=== PATIENT | female | born 1940 | race Caucasian/White ===

== ENCOUNTER 2017-09-02 00:41 | Day surgery (SDC) | payer MEDICARE, OTHER ==
[~2017-09-02 00:41] MED LIST: ALLO100; ALLO100 PO; ALLO300 PO; ALPR.5; ALPR.5 PO; AMLO5; AMLO5 PO; AMOX500 PO; ASPI81CH PO; ASPI81EC; Allopurinol100 MG; Aluminum H320 MG/5 M PO; Ativan0.5 MG; BENADRYL25 MG PO; BENAML20/5; BICARB; BIOTIN2500 MCG PO; BIOTIN5 MG; BIOTIN5 MG PO; BISA5EC; BRINTELLIX PO; BRINTELLIX10 MG PO; BUME1; BUME2; BUME2 PO; BUPR75 PO; BUTASPCAF; BUTASPCAFT; Bactrim Ds Tab1 EACH PO; Benicar5 MG PO; Butalbital-Asa1 EAC1 PO; CALC.25 PO; CARB25; CARB25 PO; CEPH250A PO; CEPH500 PO; CIPR250 PO; CLON.1 PO; CLON.5; CLON.5 PO; CLON1; COLC.6 PO; CONEST.9; CYAN500 PO; CYCL10 PO; Calcitriol0.25 MCG; Carbidopa-Levo1 EAC1; Carbidopa-Levo1 EAC1 PO; DIAZ2 PO; DIPH50 PO; DOCU100 PO; DONE10; DONE10 PO; DONE5 PO; DOXE0.5 PO; DRON2.5; DULO30 PO; DULO60 PO; ESCI10; ESCI20 PO; FENT25TP; FIORICET 50-301 EACH; FOLI1 PO; Ferus150 MG PO; Flonase 0.05% N16 GM; GABA100 PO; GABA300; GEMF600; HYDACE5; HYDMOR2 PO; HYDR1TAB94 PO; ISOMON20 PO; Ipratropium Bro30 ML; LEVCAR2510; LEVCAR2510 PO; LEVFLO250 PO; LEVSOD150 PO; LEVSOD50; LEVSOD50 PO; LISI5 PO; LOPE2C PO; LORA.5; LORA.5 PO; LORA1 PO; MAG 64; MAGCHL64ER PO; MAGNESIUM PO; MAGNESIUM400 MG PO; METH40; METO2.5 PO; METO25ER PO; METO5 PO; METO50; METO50 PO; METOPROLOL PO; METPRE4DP PO; Magnesium500 M1; Micro-K10 MEQ PO; Mirapex0.25 MG; Mupirocin22 GM TOP; OLME20; OLME20 PO; OMEP20ER; OMEP20ER PO; ONDA4ODT MM; OXYACE5T; OXYACE5T PO; OXYC10TA19 PO; OXYC1TAB11 PO; OXYC5; OXYC5 PO; PERIDEX15 ML MM; POTA10T PO; POTA20LUD PO; POTCHL20ER PO; PRAM.125 PO; PRAM.5; PRAM.5 PO; PRAMIPEXOLE PO; PRED1SU BOTHEYES; PREG100; PREG100 PO; PREG150 PO; PREG25 PO; PREG50 PO; PREG75; PROC25S PR; PROM25; PROM25 PO; Pepcid40 MG PO; Percocet 5-3251 EACH PO; Phenergan25 M1 PO; Prilosec Otc20 MG PO; Prinivil10 MG PO; RABE20; RANI150 PO; ROPI.25 PO; ROPI1 PO; RXCYCL10 PO; RXHYDMOR2 PO; Restoril7.5 MG PO; SODBIC650; SODBIC650 PO; SPIR25 PO; SULTRIDS PO; TEMA15 PO; TERB250 PO; TRAZ50 PO; Transderm-Scop1 EACH TD; UNK ANTIDEPRESSANT; UREA 40% NAIL1 EACH TOP; VENL75; VENL75ER; VIIBRYD10 MG PO; VITAMIN B12-FO1 EACH PO; ZOLP10 PO; ZOLP5; Zofran Odt4 MG PO; Zofran Odt8 MG SL; [UNRECOGNIZED DRUG - OTHER] PO
[2017-12-25] MEDS ORDERED: MAGCHL64ER PO (11:34)
[2017-12-25] MEDS ORDERED: PREG75 PO (11:37)
[2017-12-25] MEDS ORDERED: OMEPRAZOLE MAGN20 MG PO (11:38)
[2017-12-25] MEDS ORDERED: METO25ER PO (11:38)
[2017-12-25] MEDS ORDERED: Meribin5 MG (11:38)
[2017-12-25] MEDS ORDERED: AMLO5 PO (11:38)
[2017-12-25] MEDS ORDERED: LISI5 PO (11:39)
[2017-12-25] MEDS ORDERED: GABA100 PO (11:39)
[2017-12-25] MEDS ORDERED: SODBIC650 PO (11:39)
[2017-12-25] MEDS ORDERED: LEVSOD50 PO (11:40)
[2017-12-25] MEDS ORDERED: ALLO100 PO (11:40)
[2017-12-25] MEDS ORDERED: PRAM.125 PO (11:40)
[2017-12-25] MEDS ORDERED: CALC.25 PO (11:41)
[2017-12-25] MEDS ORDERED: DONE10 PO (11:41)
[2017-12-25] MEDS ORDERED: Primalev 5-3001 EACH (11:41)
== END 2017-09-02 23:18 | disposition home or self-care (01) ==
LOC: ATC 00:41
DX: Z45.2 Encounter for adjustment and management of vascular access device (principal); R53.1 Weakness; R11.2 Nausea with vomiting, unspecified

== ENCOUNTER 2017-09-04 14:21 | Emergency (ER) | payer MEDICARE, OTHER ==
[~2017-09-04] VITALS: Ht 147.3 cm; Wt 49.9 kg
[2017-09-04] MEDS ORDERED: BUME2 PO ×2 (14:41→15:53)
[2017-09-04] MEDS ORDERED: CARBIDOPA/LEVODOPA PO (14:42)
[2017-09-04] MEDS ORDERED: CLON.5 PO ×2 (14:43→15:55)
[2017-09-04] MEDS ORDERED: LORATADINE PO (14:44)
[2017-09-04] MEDS ORDERED: LOSA25 PO (14:45)
[2017-09-04 15:18] LABS: Adenovirus Not Detected (NOT DETECT); Bordetella pertussis Not Detected (NOT DETECT); Chlamydophila pneumoniae Not Detected (NOT DETECT); Coronavirus 229E Not Detected (NOT DETECT); Coronavirus HKU1 Not Detected (NOT DETECT); Coronavirus NL63 Not Detected (NOT DETECT); Coronavirus OC43 Not Detected (NOT DETECT); Human Metapneumovirus Not Detected (NOT DETECT); Human Rhinovirus/Enterovirus Not Detected (NOT DETECT); Influenza A/2009-H1 Not Detected (NOT DETECT); Influenza A/H1 Not Detected (NOT DETECT); Influenza A/H3 Not Detected (NOT DETECT); Influenza B Not Detected (NOT DETECT); Mycoplasma pneumoniae Not Detected (NOT DETECT); Parainfluenza Virus 1 Not Detected (NOT DETECT); Parainfluenza Virus 2 Not Detected (NOT DETECT); Parainfluenza Virus 3 Not Detected (NOT DETECT); Parainfluenza Virus 4 Not Detected (NOT DETECT); Respiratory Syncytial Virus Not Detected (NOT DETECT)
[2017-09-04 15:28] LABS: BASOPHILS ABSOLUTE AUTO 0.02 K/mm3 (0.00-0.23); BASOPHILS PERCENT AUTO 0 % (0-2); EOSINOPHILS ABSOLUTE AUTO 0.05 K/mm3 (0.00-0.68); EOSINOPHILS PERCENT AUTO 1 % (0-6); Hemoglobin 9.8 g/dL (11.5-16.0); IMMATURE GRAN ABSOLUTE AUTO 0.05 K/mm3 (0.00-0.10); IMMATURE GRAN PERCENT AUTO 1 % (0-1); LYMPHOCYTES ABSOLUTE AUTO 0.73 K/mm3 (0.84-5.20); LYMPHOCYTES PERCENT AUTO 15 % (21-46); MONOCYTES ABSOLUTE AUTO 0.67 K/mm3 (0.16-1.47); MONOCYTES PERCENT AUTO 14 % (4-13); Mean Corpuscular HGB 29.6 pg (26.0-34.0); Mean Corpuscular HGB Conc 32.7 g/dL (31.5-36.5); Mean Corpuscular Volume 91 fL (80-100); NEUTROPHILS ABSOLUTE AUTO 3.36 K/mm3 (1.96-9.15); NEUTROPHILS PERCENT AUTO 69 % (41-73); Platelet Count 50 K/mm3 (150-400); Red Blood Cell Count 3.31 M/mm3 (3.80-5.20); White Blood Cell Count 4.88 K/mm3 (4.00-11.30)
[2017-09-04 15:33] LABS: Source, Urine Voided
[2017-09-04 15:38] LABS: Bilirubin, Urine Neg (Neg); Blood, Urine 2+ (Neg); Glucose Qualitative, Urine Neg (Neg); Ketones, Urine Neg (Neg); Leukocyte Esterase, Urine 2+ (Neg); Nitrite, Urine Neg (Neg); Protein, Urine 4+ (Neg); Specific Gravity, Urine 1.015 (1.003-1.022); Urobilinogen, Urine NORM (Normal)
[2017-09-04 15:51] LABS: Appearance, Urine Clear (Clear); Color, Urine Yellow (P-Yellow)
[2017-09-04 15:52] LABS: Bacteria Mod /hpf; Red Blood Cells, Urine 0-2 /hpf (0-2); Squamous Epithelial Cells Mod /hpf (Few); Yeast/Fungi Urine Few /hpf
[2017-09-04] MEDS ORDERED: AMLO5 PO (15:53)
[2017-09-04] MEDS ORDERED: ASPI81CH PO (15:53)
[2017-09-04 15:54] LABS: Alanine Aminotransfer (ALT/SGP 22 U/L (12-78); Albumin/Globulin Ratio 1.1 (0.8-1.8); Alk Phos 168 U/L (50-136); Anion Gap 11 mmol/L (6-16); Aspartate Aminotrans (AST/SGOT 19 U/L (12-37); Bilirubin, Total 0.4 mg/dL (0.1-1.0); Blood Urea Nitrogen 33 mg/dL (8-24); Bun/Creatinine Ratio 21.2 (12.0-20.0); CO2, Blood 21 mmol/L (21-32); Calcium, Blood 8.6 mg/dL (8.5-10.1); Chloride, Blood 113 mmol/L (98-108); Creatinine, Blood 1.56 mg/dL (0.40-1.00); Globulin, Blood 2.7 g/dL (2.2-4.0); Glomerular Filtration Rate 34 (60-); Glucose, Blood 105 mg/dL (70-99); Potassium, Blood 3.6 mmol/L (3.5-5.5); Sodium, Blood 145 mmol/L (136-145); Total Protein, Blood 5.7 g/dL (6.4-8.2); Troponin I <0.015 ng/mL (0.000-0.040)
[2017-09-04] MEDS ORDERED: CARB150 PO (15:54)
[2017-09-04] MEDS ORDERED: DONE10 PO (15:55)
[2017-09-04] MEDS ORDERED: Periogard473 ML MM (15:55)
[2017-09-04] MEDS ORDERED: LISI5 PO (15:56)
[2017-09-04] MEDS ORDERED: LOPE2C PO (15:56)
[2017-09-04] MEDS ORDERED: Ipratr-Albuterol3 ML INH (15:56)
[2017-09-04] MEDS ORDERED: TIROSINT50 MCG PO (15:56)
[2017-09-04] MEDS ORDERED: Omeprazole20 M1 PO (15:57)
[2017-09-04] MEDS ORDERED: METO25ER PO (15:57)
[2017-09-04] MEDS ORDERED: PREG75 PO (15:57)
[2017-09-04] MEDS ORDERED: PROC25S PR (15:58)
[2017-09-04] MEDS ORDERED: PROM25 PO (15:58)
[2017-09-04] MEDS ORDERED: PRAM.5 PO (15:58)
[2017-09-04] MEDS ORDERED: ONDA8 PO (15:58)
[2017-09-04] MEDS ORDERED: RANI150 PO (15:59)
[2017-09-04] MEDS ORDERED: ROPI1 PO (15:59)
[2017-09-04 16:35] LABS: Influenza A Not Detected (NOT DETECT)
[2017-09-04] MEDS ORDERED: Zithromax250 MG PO (17:25)
[2017-09-04] MEDS ORDERED: ERYT1OIN RIGHTEYE (17:25)
[2017-09-04] MEDS ORDERED: Mucinex600 MG PO (17:25)
[2017-12-25] MEDS ORDERED: MAGCHL64ER PO (11:34)
[2017-12-25] MEDS ORDERED: PREG75 PO (11:37)
[2017-12-25] MEDS ORDERED: Meribin5 MG (11:38)
[2017-12-25] MEDS ORDERED: AMLO5 PO (11:38)
[2017-12-25] MEDS ORDERED: OMEPRAZOLE MAGN20 MG PO (11:38)
[2017-12-25] MEDS ORDERED: METO25ER PO (11:38)
[2017-12-25] MEDS ORDERED: LISI5 PO (11:39)
[2017-12-25] MEDS ORDERED: SODBIC650 PO (11:39)
[2017-12-25] MEDS ORDERED: GABA100 PO (11:39)
[2017-12-25] MEDS ORDERED: LEVSOD50 PO (11:40)
[2017-12-25] MEDS ORDERED: ALLO100 PO (11:40)
[2017-12-25] MEDS ORDERED: PRAM.125 PO (11:40)
[2017-12-25] MEDS ORDERED: DONE10 PO (11:41)
[2017-12-25] MEDS ORDERED: Primalev 5-3001 EACH (11:41)
[2017-12-25] MEDS ORDERED: CALC.25 PO (11:41)
== END 2017-09-04 17:49 | disposition home or self-care (01) ==
LOC: ER 14:21
PROVIDERS: Physician Assistant
DX: J06.9 Acute upper respiratory infection, unspecified (principal); H10.021 Other mucopurulent conjunctivitis, right eye; H66.92 Otitis media, unspecified, left ear; I10 Essential (primary) hypertension; G62.9 Polyneuropathy, unspecified; M79.7 Fibromyalgia; M81.0 Age-related osteoporosis without current pathological fracture; Z88.8 Allergy status to other drugs, medicaments and biological substances; Z88.0 Allergy status to penicillin; Z88.1 Allergy status to other antibiotic agents; Z88.5 Allergy status to narcotic agent; Z79.899 Other long term (current) drug therapy; Z79.82 Long term (current) use of aspirin; Z79.2 Long term (current) use of antibiotics; Z90.49 Acquired absence of other specified parts of digestive tract; Z90.89 Acquired absence of other organs; Z87.891 Personal history of nicotine dependence
CPT/HCPCS: 71046; 80053; 81001; 83880; 84484; 85025; 87086; 87486; 87581; 87633; 87798; 93005; 93010; 99284

== ENCOUNTER 2017-09-09 01:07 | Day surgery (SDC) | payer MEDICARE, OTHER ==
[~2017-09-09 01:07] MED LIST changes: +CARB150 PO; +CARBIDOPA/LEVODOPA PO; +ERYT1OIN RIGHTEYE; +Ipratr-Albuterol3 ML INH; +LORATADINE PO; +LOSA25 PO; +Mucinex600 MG PO; +ONDA8 PO; +Omeprazole20 M1 PO; +PREG75 PO; +Periogard473 ML MM; +TIROSINT50 MCG PO; +Zithromax250 MG PO
[2017-12-25] MEDS ORDERED: MAGCHL64ER PO (11:34)
[2017-12-25] MEDS ORDERED: PREG75 PO (11:37)
[2017-12-25] MEDS ORDERED: OMEPRAZOLE MAGN20 MG PO (11:38)
[2017-12-25] MEDS ORDERED: METO25ER PO (11:38)
[2017-12-25] MEDS ORDERED: Meribin5 MG (11:38)
[2017-12-25] MEDS ORDERED: AMLO5 PO (11:38)
[2017-12-25] MEDS ORDERED: LISI5 PO (11:39)
[2017-12-25] MEDS ORDERED: GABA100 PO (11:39)
[2017-12-25] MEDS ORDERED: SODBIC650 PO (11:39)
[2017-12-25] MEDS ORDERED: PRAM.125 PO (11:40)
[2017-12-25] MEDS ORDERED: ALLO100 PO (11:40)
[2017-12-25] MEDS ORDERED: LEVSOD50 PO (11:40)
[2017-12-25] MEDS ORDERED: DONE10 PO (11:41)
[2017-12-25] MEDS ORDERED: CALC.25 PO (11:41)
[2017-12-25] MEDS ORDERED: Primalev 5-3001 EACH (11:41)
== END 2017-09-09 16:34 | disposition home or self-care (01) ==
LOC: ATC 01:07
DX: Z45.2 Encounter for adjustment and management of vascular access device (principal); R53.1 Weakness; R11.2 Nausea with vomiting, unspecified
CPT/HCPCS: 99211

== ENCOUNTER 2017-09-18 00:56 | Day surgery (SDC) | payer MEDICARE, OTHER ==
[2017-12-25] MEDS ORDERED: MAGCHL64ER PO (11:34)
[2017-12-25] MEDS ORDERED: PREG75 PO (11:37)
[2017-12-25] MEDS ORDERED: AMLO5 PO (11:38)
[2017-12-25] MEDS ORDERED: Meribin5 MG (11:38)
[2017-12-25] MEDS ORDERED: METO25ER PO (11:38)
[2017-12-25] MEDS ORDERED: OMEPRAZOLE MAGN20 MG PO (11:38)
[2017-12-25] MEDS ORDERED: SODBIC650 PO (11:39)
[2017-12-25] MEDS ORDERED: LISI5 PO (11:39)
[2017-12-25] MEDS ORDERED: GABA100 PO (11:39)
[2017-12-25] MEDS ORDERED: PRAM.125 PO (11:40)
[2017-12-25] MEDS ORDERED: LEVSOD50 PO (11:40)
[2017-12-25] MEDS ORDERED: ALLO100 PO (11:40)
[2017-12-25] MEDS ORDERED: DONE10 PO (11:41)
[2017-12-25] MEDS ORDERED: CALC.25 PO (11:41)
[2017-12-25] MEDS ORDERED: Primalev 5-3001 EACH (11:41)
== END 2017-09-19 00:08 | disposition home or self-care (01) ==
LOC: ATC 00:56
DX: R11.0 Nausea (principal); K74.60 Unspecified cirrhosis of liver; R06.02 Shortness of breath; Z99.81 Dependence on supplemental oxygen; R06.00 Dyspnea, unspecified; I12.9 Hypertensive chronic kidney disease with stage 1 through stage 4 chronic kidney disease, or unspecified chronic kidney disease; N18.9 Chronic kidney disease, unspecified; E78.5 Hyperlipidemia, unspecified; E03.9 Hypothyroidism, unspecified; E11.22 Type 2 diabetes mellitus with diabetic chronic kidney disease; E11.40 Type 2 diabetes mellitus with diabetic neuropathy, unspecified; F32.9 Major depressive disorder, single episode, unspecified; D64.9 Anemia, unspecified; Z87.891 Personal history of nicotine dependence

== ENCOUNTER 2017-09-23 00:30 | Day surgery (SDC) | payer MEDICARE, OTHER ==
[2017-09-23 17:48] LABS: Albumin, Blood 3.4 g/dL (3.4-5.0); Anion Gap 9 mmol/L (6-16); Blood Urea Nitrogen 25 mg/dL (8-24); CO2, Blood 21 mmol/L (21-32); Calcium, Blood 8.5 mg/dL (8.5-10.1); Chloride, Blood 116 mmol/L (98-108); Creatinine, Blood 1.39 mg/dL (0.40-1.00); Glomerular Filtration Rate 39 (60-); Glucose, Blood 78 mg/dL (70-99); Phosphorus, Blood 2.9 mg/dL (2.5-4.9); Potassium, Blood 4.5 mmol/L (3.5-5.5); Sodium, Blood 146 mmol/L (136-145); Uric Acid, Blood 6.3 mg/dL (2.6-6.0)
[2017-12-25] MEDS ORDERED: MAGCHL64ER PO (11:34)
[2017-12-25] MEDS ORDERED: PREG75 PO (11:37)
[2017-12-25] MEDS ORDERED: METO25ER PO (11:38)
[2017-12-25] MEDS ORDERED: OMEPRAZOLE MAGN20 MG PO (11:38)
[2017-12-25] MEDS ORDERED: AMLO5 PO (11:38)
[2017-12-25] MEDS ORDERED: Meribin5 MG (11:38)
[2017-12-25] MEDS ORDERED: GABA100 PO (11:39)
[2017-12-25] MEDS ORDERED: LISI5 PO (11:39)
[2017-12-25] MEDS ORDERED: SODBIC650 PO (11:39)
[2017-12-25] MEDS ORDERED: LEVSOD50 PO (11:40)
[2017-12-25] MEDS ORDERED: PRAM.125 PO (11:40)
[2017-12-25] MEDS ORDERED: ALLO100 PO (11:40)
[2017-12-25] MEDS ORDERED: DONE10 PO (11:41)
[2017-12-25] MEDS ORDERED: CALC.25 PO (11:41)
[2017-12-25] MEDS ORDERED: Primalev 5-3001 EACH (11:41)
== END 2017-09-23 16:25 | disposition home or self-care (01) ==
LOC: ATC 00:30
PROVIDERS: Internal Medicine Nephrology
DX: N18.3 Chronic kidney disease, stage 3 (moderate) (principal); D63.1 Anemia in chronic kidney disease; D50.0 Iron deficiency anemia secondary to blood loss (chronic); R11.2 Nausea with vomiting, unspecified; R53.1 Weakness; Z45.2 Encounter for adjustment and management of vascular access device
CPT/HCPCS: 36592; 80069; 84550; 85014

== ENCOUNTER 2017-09-30 01:03 | Day surgery (SDC) | payer MEDICARE, OTHER ==
[2017-09-30 19:59] LABS: Albumin, Blood 3.3 g/dL (3.4-5.0); Anion Gap 9 mmol/L (6-16); Blood Urea Nitrogen 19 mg/dL (8-24); Bun/Creatinine Ratio 16.8 (12.0-20.0); CO2, Blood 19 mmol/L (21-32); Calcium, Blood 7.7 mg/dL (8.5-10.1); Chloride, Blood 117 mmol/L (98-108); Creatinine, Blood 1.13 mg/dL (0.40-1.00); Glomerular Filtration Rate 50 (60-); Glucose, Blood 72 mg/dL (70-99); Phosphorus, Blood 1.4 mg/dL (2.5-4.9); Potassium, Blood 4.5 mmol/L (3.5-5.5); Sodium, Blood 145 mmol/L (136-145)
[2017-12-25] MEDS ORDERED: MAGCHL64ER PO (11:34)
[2017-12-25] MEDS ORDERED: PREG75 PO (11:37)
[2017-12-25] MEDS ORDERED: METO25ER PO (11:38)
[2017-12-25] MEDS ORDERED: OMEPRAZOLE MAGN20 MG PO (11:38)
[2017-12-25] MEDS ORDERED: AMLO5 PO (11:38)
[2017-12-25] MEDS ORDERED: Meribin5 MG (11:38)
[2017-12-25] MEDS ORDERED: LISI5 PO (11:39)
[2017-12-25] MEDS ORDERED: GABA100 PO (11:39)
[2017-12-25] MEDS ORDERED: SODBIC650 PO (11:39)
[2017-12-25] MEDS ORDERED: ALLO100 PO (11:40)
[2017-12-25] MEDS ORDERED: PRAM.125 PO (11:40)
[2017-12-25] MEDS ORDERED: LEVSOD50 PO (11:40)
[2017-12-25] MEDS ORDERED: CALC.25 PO (11:41)
[2017-12-25] MEDS ORDERED: Primalev 5-3001 EACH (11:41)
[2017-12-25] MEDS ORDERED: DONE10 PO (11:41)
== END 2017-09-30 17:15 | disposition home or self-care (01) ==
LOC: ATC 01:03
PROVIDERS: Internal Medicine Nephrology
DX: N18.3 Chronic kidney disease, stage 3 (moderate) (principal); D75.1 Secondary polycythemia; D50.0 Iron deficiency anemia secondary to blood loss (chronic); R11.2 Nausea with vomiting, unspecified; R53.1 Weakness; Z45.2 Encounter for adjustment and management of vascular access device
CPT/HCPCS: 36592; 80069

== ENCOUNTER 2017-10-07 01:00 | Day surgery (SDC) | payer MEDICARE, OTHER ==
[2017-12-25] MEDS ORDERED: MAGCHL64ER PO (11:34)
[2017-12-25] MEDS ORDERED: PREG75 PO (11:37)
[2017-12-25] MEDS ORDERED: METO25ER PO (11:38)
[2017-12-25] MEDS ORDERED: AMLO5 PO (11:38)
[2017-12-25] MEDS ORDERED: Meribin5 MG (11:38)
[2017-12-25] MEDS ORDERED: OMEPRAZOLE MAGN20 MG PO (11:38)
[2017-12-25] MEDS ORDERED: SODBIC650 PO (11:39)
[2017-12-25] MEDS ORDERED: LISI5 PO (11:39)
[2017-12-25] MEDS ORDERED: GABA100 PO (11:39)
[2017-12-25] MEDS ORDERED: LEVSOD50 PO (11:40)
[2017-12-25] MEDS ORDERED: ALLO100 PO (11:40)
[2017-12-25] MEDS ORDERED: PRAM.125 PO (11:40)
[2017-12-25] MEDS ORDERED: Primalev 5-3001 EACH (11:41)
[2017-12-25] MEDS ORDERED: DONE10 PO (11:41)
[2017-12-25] MEDS ORDERED: CALC.25 PO (11:41)
== END 2017-10-07 22:36 | disposition home or self-care (01) ==
LOC: ATC 01:00
DX: Z45.2 Encounter for adjustment and management of vascular access device (principal); N18.3 Chronic kidney disease, stage 3 (moderate); D63.1 Anemia in chronic kidney disease; D50.0 Iron deficiency anemia secondary to blood loss (chronic); R53.1 Weakness; R11.2 Nausea with vomiting, unspecified
CPT/HCPCS: 99211

== ENCOUNTER 2017-10-14 00:25 | Day surgery (SDC) | payer MEDICARE, OTHER ==
[2017-10-14 16:55] LABS: Amylase, Blood 65 U/L (25-115)
[2017-10-14 16:56] LABS: Alanine Aminotransfer (ALT/SGP 20 U/L (12-78); Albumin, Blood 3.4 g/dL (3.4-5.0); Albumin/Globulin Ratio 1.4 (0.8-1.8); Alk Phos 120 U/L (50-136); Aspartate Aminotrans (AST/SGOT 26 U/L (12-37); Bilirubin, Direct <0.1 mg/dL (0.0-0.3); Bilirubin, Indirect Unable to Calculate mg/dL (0.1-0.7); Bilirubin, Total 0.3 mg/dL (0.1-1.0); Globulin, Blood 2.4 g/dL (2.2-4.0); Total Protein, Blood 5.8 g/dL (6.4-8.2)
[2017-12-25] MEDS ORDERED: MAGCHL64ER PO (11:34)
[2017-12-25] MEDS ORDERED: PREG75 PO (11:37)
[2017-12-25] MEDS ORDERED: METO25ER PO (11:38)
[2017-12-25] MEDS ORDERED: Meribin5 MG (11:38)
[2017-12-25] MEDS ORDERED: OMEPRAZOLE MAGN20 MG PO (11:38)
[2017-12-25] MEDS ORDERED: AMLO5 PO (11:38)
[2017-12-25] MEDS ORDERED: GABA100 PO (11:39)
[2017-12-25] MEDS ORDERED: SODBIC650 PO (11:39)
[2017-12-25] MEDS ORDERED: LISI5 PO (11:39)
[2017-12-25] MEDS ORDERED: ALLO100 PO (11:40)
[2017-12-25] MEDS ORDERED: PRAM.125 PO (11:40)
[2017-12-25] MEDS ORDERED: LEVSOD50 PO (11:40)
[2017-12-25] MEDS ORDERED: CALC.25 PO (11:41)
[2017-12-25] MEDS ORDERED: DONE10 PO (11:41)
[2017-12-25] MEDS ORDERED: Primalev 5-3001 EACH (11:41)
== END 2017-10-14 16:20 | disposition home or self-care (01) ==
LOC: ATC 00:25
PROVIDERS: Internal Medicine Nephrology
DX: R11.0 Nausea (principal); K56.609 Unspecified intestinal obstruction, unspecified as to partial versus complete obstruction; E11.22 Type 2 diabetes mellitus with diabetic chronic kidney disease; I12.9 Hypertensive chronic kidney disease with stage 1 through stage 4 chronic kidney disease, or unspecified chronic kidney disease; E78.5 Hyperlipidemia, unspecified; E03.9 Hypothyroidism, unspecified; N18.9 Chronic kidney disease, unspecified; Z87.891 Personal history of nicotine dependence
CPT/HCPCS: 36592; 80076; 82150; 83690

== ENCOUNTER 2017-10-19 06:03 | Day surgery (SDC) | payer MEDICARE, OTHER ==
[~2017-10-19] VITALS: Ht 147.3 cm; Wt 48.5 kg
[2017-10-19] MEDS ORDERED: ALLO100 PO (06:49)
[2017-10-19] MEDS ORDERED: PRAM.5 PO (06:53)
[2017-10-19] MEDS ORDERED: RAYALDEE30 MCG PO (06:53)
[2017-12-25] MEDS ORDERED: MAGCHL64ER PO (11:34)
[2017-12-25] MEDS ORDERED: PREG75 PO (11:37)
[2017-12-25] MEDS ORDERED: METO25ER PO (11:38)
[2017-12-25] MEDS ORDERED: Meribin5 MG (11:38)
[2017-12-25] MEDS ORDERED: AMLO5 PO (11:38)
[2017-12-25] MEDS ORDERED: OMEPRAZOLE MAGN20 MG PO (11:38)
[2017-12-25] MEDS ORDERED: GABA100 PO (11:39)
[2017-12-25] MEDS ORDERED: LISI5 PO (11:39)
[2017-12-25] MEDS ORDERED: SODBIC650 PO (11:39)
[2017-12-25] MEDS ORDERED: PRAM.125 PO (11:40)
[2017-12-25] MEDS ORDERED: LEVSOD50 PO (11:40)
[2017-12-25] MEDS ORDERED: ALLO100 PO (11:40)
[2017-12-25] MEDS ORDERED: CALC.25 PO (11:41)
[2017-12-25] MEDS ORDERED: Primalev 5-3001 EACH (11:41)
[2017-12-25] MEDS ORDERED: DONE10 PO (11:41)
== END 2017-10-19 22:45 | disposition home or self-care (01) ==
LOC: ORSCMMR 06:03 → ORD 07:30 → ORSCMMR 07:30 → ORD 10-20 09:00
PROVIDERS: Surgery
PROC: 05HN33Z Insertion of Infusion Device into Left Internal Jugular Vein, Percutaneous Approach (ICD-10-PCS; principal; 2017-10-19 07:30)
PROC: B5141ZA Fluoroscopy of Left Jugular Veins using Low Osmolar Contrast, Guidance (ICD-10-PCS; principal; 2017-10-19 07:30)
DX: E86.0 Dehydration (principal); E86.9 Volume depletion, unspecified; I10 Essential (primary) hypertension; E11.9 Type 2 diabetes mellitus without complications; N18.9 Chronic kidney disease, unspecified; E03.9 Hypothyroidism, unspecified; Z87.891 Personal history of nicotine dependence; Z79.899 Other long term (current) drug therapy; Z79.82 Long term (current) use of aspirin
CPT/HCPCS: 77001; 82947; C1788; J0690; J1642; J2250; J2405; J3010; J7120

== ENCOUNTER 2017-10-24 17:04 | Emergency (ER) | payer MEDICARE, OTHER ==
[~2017-10-24] VITALS: Ht 149.9 cm; Wt 45.4 kg
[~2017-10-24 17:04] MED LIST changes: +RAYALDEE30 MCG PO
[2017-10-24 18:02] LABS: BASOPHILS ABSOLUTE AUTO 0.01 K/mm3 (0.00-0.23); BASOPHILS PERCENT AUTO 0 % (0-2); EOSINOPHILS ABSOLUTE AUTO 0.04 K/mm3 (0.00-0.68); EOSINOPHILS PERCENT AUTO 1 % (0-6); Hematocrit 35.4 % (33.0-51.0); Hemoglobin 11.2 g/dL (11.5-16.0); IMMATURE GRAN ABSOLUTE AUTO 0.02 K/mm3 (0.00-0.10); IMMATURE GRAN PERCENT AUTO 0 % (0-1); LYMPHOCYTES ABSOLUTE AUTO 0.92 K/mm3 (0.84-5.20); LYMPHOCYTES PERCENT AUTO 20 % (21-46); MONOCYTES ABSOLUTE AUTO 0.55 K/mm3 (0.16-1.47); MONOCYTES PERCENT AUTO 12 % (4-13); Mean Corpuscular HGB 30.8 pg (26.0-34.0); Mean Corpuscular HGB Conc 31.6 g/dL (31.5-36.5); Mean Corpuscular Volume 97 fL (80-100); NEUTROPHILS ABSOLUTE AUTO 3.19 K/mm3 (1.96-9.15); NEUTROPHILS PERCENT AUTO 68 % (41-73); Platelet Count 60 K/mm3 (150-400); RDW Coefficient Variation 18.6 % (11.7-14.2); RDW Standard Deviation 66.4 fL (35.1-46.3); Red Blood Cell Count 3.64 M/mm3 (3.80-5.20); White Blood Cell Count 4.73 K/mm3 (4.00-11.30)
[2017-10-24 18:19] LABS: Albumin, Blood 2.9 g/dL (3.4-5.0); Bilirubin, Total 0.5 mg/dL (0.1-1.0); Bun/Creatinine Ratio 19.3 (12.0-20.0); Calcium, Blood 7.1 mg/dL (8.5-10.1); Creatinine, Blood 1.4 mg/dL (0.40-1.00); Globulin, Blood 2.9 g/dL (2.2-4.0); Potassium, Blood 4.8 mmol/L (3.5-5.5); Total Protein, Blood 5.8 g/dL (6.4-8.2)
[2017-10-24] MEDS ORDERED: LEVO750 PO (18:59)
[2017-12-25] MEDS ORDERED: MAGCHL64ER PO (11:34)
[2017-12-25] MEDS ORDERED: PREG75 PO (11:37)
[2017-12-25] MEDS ORDERED: OMEPRAZOLE MAGN20 MG PO (11:38)
[2017-12-25] MEDS ORDERED: METO25ER PO (11:38)
[2017-12-25] MEDS ORDERED: AMLO5 PO (11:38)
[2017-12-25] MEDS ORDERED: Meribin5 MG (11:38)
[2017-12-25] MEDS ORDERED: GABA100 PO (11:39)
[2017-12-25] MEDS ORDERED: LISI5 PO (11:39)
[2017-12-25] MEDS ORDERED: SODBIC650 PO (11:39)
[2017-12-25] MEDS ORDERED: LEVSOD50 PO (11:40)
[2017-12-25] MEDS ORDERED: ALLO100 PO (11:40)
[2017-12-25] MEDS ORDERED: PRAM.125 PO (11:40)
[2017-12-25] MEDS ORDERED: DONE10 PO (11:41)
[2017-12-25] MEDS ORDERED: CALC.25 PO (11:41)
[2017-12-25] MEDS ORDERED: Primalev 5-3001 EACH (11:41)
== END 2017-10-24 20:37 | disposition home or self-care (01) ==
LOC: ER 17:04
PROVIDERS: Emergency Medicine
DX: J18.9 Pneumonia, unspecified organism (principal); I12.9 Hypertensive chronic kidney disease with stage 1 through stage 4 chronic kidney disease, or unspecified chronic kidney disease; N18.9 Chronic kidney disease, unspecified; Z87.891 Personal history of nicotine dependence; Z88.8 Allergy status to other drugs, medicaments and biological substances; Z88.0 Allergy status to penicillin; Z88.1 Allergy status to other antibiotic agents; Z88.5 Allergy status to narcotic agent; Z79.899 Other long term (current) drug therapy; Z79.82 Long term (current) use of aspirin
CPT/HCPCS: 71046; 80053; 83605; 83880; 85025; 87040; 93005; 93010; 99283; J1642

== ENCOUNTER 2017-11-23 00:27 | Day surgery (SDC) | payer MEDICARE, OTHER ==
[~2017-11-23 00:27] MED LIST changes: +LEVO750 PO
[2017-11-23 15:44] LABS: Hematocrit 35.8 % (33.0-51.0); Hemoglobin 11.2 g/dL (11.5-16.0); Mean Corpuscular HGB 31.9 pg (26.0-34.0); Mean Corpuscular HGB Conc 31.3 g/dL (31.5-36.5); Mean Corpuscular Volume 102 fL (80-100); RDW Coefficient Variation 17.1 % (11.7-14.2); RDW Standard Deviation 64.4 fL (35.1-46.3); Red Blood Cell Count 3.51 M/mm3 (3.80-5.20); White Blood Cell Count 2.81 K/mm3 (4.00-11.30)
[2017-11-23 16:09] LABS: Alanine Aminotransfer (ALT/SGP 23 U/L (12-78); Albumin, Blood 3.3 g/dL (3.4-5.0); Albumin/Globulin Ratio 1.4 (0.8-1.8); Alk Phos 111 U/L (50-136); Anion Gap 8 mmol/L (6-16); Aspartate Aminotrans (AST/SGOT 20 U/L (12-37); Bilirubin, Total 0.4 mg/dL (0.1-1.0); Blood Urea Nitrogen 28 mg/dL (8-24); CO2, Blood 20 mmol/L (21-32); Chloride, Blood 119 mmol/L (98-108); Creatinine, Blood 1.27 mg/dL (0.40-1.00); Globulin, Blood 2.4 g/dL (2.2-4.0); Glomerular Filtration Rate 43 (60-); Glucose, Blood 83 mg/dL (70-99); Phosphorus, Blood 2.7 mg/dL (2.5-4.9); Potassium, Blood 5.8 mmol/L (3.5-5.5); Sodium, Blood 147 mmol/L (136-145); Total Protein, Blood 5.7 g/dL (6.4-8.2)
[2017-11-23 16:11] LABS: Platelet Count 44 K/mm3 (150-400)
[2017-11-23 16:13] LABS: Alpha Feto Protein, Tumor Mkr 0.7 ng/mL (0.0-8.0); Percent Saturation 33.3 % (15.0-50.0)
[2017-11-23 16:15] LABS: International Normalized Ratio 1.02; Prothrombin Time Results 10.6 Sec (9.7-11.5)
[2017-11-23 16:16] LABS: BASOPHILS ABSOLUTE MAN 0.02 K/mm3 (0.00-0.23); BASOPHILS PERCENT MAN 1 % (0-2); EOSINOPHILS ABSOLUTE MAN 0.02 K/mm3 (0.00-0.68); EOSINOPHILS PERCENT MAN 1 % (0-6); LYMPHOCYTES ABSOLUTE MAN 0.92 K/mm3 (0.84-5.20); LYMPHOCYTES PERCENT MAN 33 % (21-46); MONOCYTES ABSOLUTE MAN 0.08 K/mm3 (0.16-1.47); MONOCYTES PERCENT MAN 3 % (4-13); NEUTROPHILS ABSOLUTE MAN 1.74 K/mm3 (1.96-9.15); SEG NEUTROPHILS PERCENT MAN 62 % (41-73); TOTAL CELLS COUNTED 100
[2017-12-25] MEDS ORDERED: MAGCHL64ER PO (11:34)
[2017-12-25] MEDS ORDERED: PREG75 PO (11:37)
[2017-12-25] MEDS ORDERED: Meribin5 MG (11:38)
[2017-12-25] MEDS ORDERED: OMEPRAZOLE MAGN20 MG PO (11:38)
[2017-12-25] MEDS ORDERED: AMLO5 PO (11:38)
[2017-12-25] MEDS ORDERED: METO25ER PO (11:38)
[2017-12-25] MEDS ORDERED: GABA100 PO (11:39)
[2017-12-25] MEDS ORDERED: SODBIC650 PO (11:39)
[2017-12-25] MEDS ORDERED: LISI5 PO (11:39)
[2017-12-25] MEDS ORDERED: PRAM.125 PO (11:40)
[2017-12-25] MEDS ORDERED: LEVSOD50 PO (11:40)
[2017-12-25] MEDS ORDERED: ALLO100 PO (11:40)
[2017-12-25] MEDS ORDERED: Primalev 5-3001 EACH (11:41)
[2017-12-25] MEDS ORDERED: CALC.25 PO (11:41)
[2017-12-25] MEDS ORDERED: DONE10 PO (11:41)
== END 2017-11-23 15:37 | disposition home or self-care (01) ==
LOC: ATC 00:27
PROVIDERS: Internal Medicine Gastroenterology; Internal Medicine Nephrology
DX: N18.3 Chronic kidney disease, stage 3 (moderate) (principal); D63.1 Anemia in chronic kidney disease; D75.1 Secondary polycythemia; D64.9 Anemia, unspecified; K74.69 Other cirrhosis of liver; Z45.2 Encounter for adjustment and management of vascular access device; Z79.01 Long term (current) use of anticoagulants
CPT/HCPCS: 36591; 80053; 82105; 82728; 83540; 83550; 84100; 85025; 85610; J1642

== ENCOUNTER 2017-11-25 00:53 | Day surgery (SDC) | payer MEDICARE, OTHER ==
[2017-12-25] MEDS ORDERED: MAGCHL64ER PO (11:34)
[2017-12-25] MEDS ORDERED: PREG75 PO (11:37)
[2017-12-25] MEDS ORDERED: AMLO5 PO (11:38)
[2017-12-25] MEDS ORDERED: OMEPRAZOLE MAGN20 MG PO (11:38)
[2017-12-25] MEDS ORDERED: METO25ER PO (11:38)
[2017-12-25] MEDS ORDERED: Meribin5 MG (11:38)
[2017-12-25] MEDS ORDERED: GABA100 PO (11:39)
[2017-12-25] MEDS ORDERED: SODBIC650 PO (11:39)
[2017-12-25] MEDS ORDERED: LISI5 PO (11:39)
[2017-12-25] MEDS ORDERED: ALLO100 PO (11:40)
[2017-12-25] MEDS ORDERED: PRAM.125 PO (11:40)
[2017-12-25] MEDS ORDERED: LEVSOD50 PO (11:40)
[2017-12-25] MEDS ORDERED: DONE10 PO (11:41)
[2017-12-25] MEDS ORDERED: CALC.25 PO (11:41)
[2017-12-25] MEDS ORDERED: Primalev 5-3001 EACH (11:41)
== END 2017-11-25 22:58 | disposition home or self-care (01) ==
LOC: ATC 00:53
DX: E78.5 Hyperlipidemia, unspecified (principal)
CPT/HCPCS: 36591; 84132; J1642

== ENCOUNTER 2017-12-02 01:28 | Day surgery (SDC) | payer MEDICARE, OTHER ==
[2017-12-02] MEDS ORDERED: VELTASSA8.4 GM PO (16:23)
[2017-12-02] MEDS ORDERED: AMOC200S75 PO (16:24)
[2017-12-02 16:49] LABS: BASOPHILS ABSOLUTE AUTO 0.03 K/mm3 (0.00-0.23); BASOPHILS PERCENT AUTO 1 % (0-2); EOSINOPHILS ABSOLUTE AUTO 0.06 K/mm3 (0.00-0.68); EOSINOPHILS PERCENT AUTO 2 % (0-6); Hemoglobin 10.9 g/dL (11.5-16.0); IMMATURE GRAN ABSOLUTE AUTO 0.01 K/mm3 (0.00-0.10); IMMATURE GRAN PERCENT AUTO 0 % (0-1); LYMPHOCYTES PERCENT AUTO 34 % (21-46); MONOCYTES ABSOLUTE AUTO 0.25 K/mm3 (0.16-1.47); MONOCYTES PERCENT AUTO 8 % (4-13); Mean Corpuscular HGB 32.4 pg (26.0-34.0); Mean Corpuscular HGB Conc 32.1 g/dL (31.5-36.5); Mean Corpuscular Volume 101 fL (80-100); NEUTROPHILS ABSOLUTE AUTO 1.81 K/mm3 (1.96-9.15); NEUTROPHILS PERCENT AUTO 56 % (41-73); RDW Coefficient Variation 15.2 % (11.7-14.2); RDW Standard Deviation 56.9 fL (35.1-46.3); Red Blood Cell Count 3.36 M/mm3 (3.80-5.20); White Blood Cell Count 3.26 K/mm3 (4.00-11.30)
[2017-12-02 16:57] LABS: Platelet Count 48 K/mm3 (150-400)
[2017-12-02 17:11] LABS: Albumin, Blood 3.3 g/dL (3.4-5.0); Anion Gap 8 mmol/L (6-16); Blood Urea Nitrogen 30 mg/dL (8-24); Bun/Creatinine Ratio 22.2 (12.0-20.0); CO2, Blood 23 mmol/L (21-32); Calcium, Blood 7.9 mg/dL (8.5-10.1); Chloride, Blood 114 mmol/L (98-108); Creatinine, Blood 1.35 mg/dL (0.40-1.00); Glomerular Filtration Rate 40 (60-); Glucose, Blood 72 mg/dL (70-99); Phosphorus, Blood 2.8 mg/dL (2.5-4.9); Potassium, Blood 4.7 mmol/L (3.5-5.5); Sodium, Blood 145 mmol/L (136-145)
== END 2017-12-02 16:25 | disposition home or self-care (01) ==
LOC: ATC 01:28
PROVIDERS: Internal Medicine Hematology & Oncology
DX: I12.9 Hypertensive chronic kidney disease with stage 1 through stage 4 chronic kidney disease, or unspecified chronic kidney disease (principal); N18.2 Chronic kidney disease, stage 2 (mild); D63.1 Anemia in chronic kidney disease; E83.51 Hypocalcemia; N39.0 Urinary tract infection, site not specified; R06.00 Dyspnea, unspecified; R11.0 Nausea; E78.5 Hyperlipidemia, unspecified; E03.9 Hypothyroidism, unspecified; E11.22 Type 2 diabetes mellitus with diabetic chronic kidney disease; N25.81 Secondary hyperparathyroidism of renal origin; F32.9 Major depressive disorder, single episode, unspecified; Z87.891 Personal history of nicotine dependence
CPT/HCPCS: 36591; 80069; 85025; J1642

== ENCOUNTER 2017-12-23 00:29 | Day surgery (SDC) | payer MEDICARE, OTHER ==
[~2017-12-23 00:29] MED LIST changes: +AMOC200S75 PO; +VELTASSA8.4 GM PO
[2017-12-23 17:28] LABS: Albumin, Blood 3.6 g/dL (3.4-5.0); Anion Gap 5 mmol/L (6-16); Blood Urea Nitrogen 25 mg/dL (8-24); CO2, Blood 22 mmol/L (21-32); Calcium, Blood 7.9 mg/dL (8.5-10.1); Chloride, Blood 118 mmol/L (98-108); Creatinine, Blood 1.39 mg/dL (0.40-1.00); Glomerular Filtration Rate 39 (60-); Glucose, Blood 91 mg/dL (70-99); Phosphorus, Blood 2.3 mg/dL (2.5-4.9); Potassium, Blood 4.7 mmol/L (3.5-5.5); Sodium, Blood 145 mmol/L (136-145)
[2017-12-25] MEDS ORDERED: MAGCHL64ER PO (11:34)
[2017-12-25] MEDS ORDERED: PREG75 PO (11:37)
[2017-12-25] MEDS ORDERED: METO25ER PO (11:38)
[2017-12-25] MEDS ORDERED: Meribin5 MG (11:38)
[2017-12-25] MEDS ORDERED: OMEPRAZOLE MAGN20 MG PO (11:38)
[2017-12-25] MEDS ORDERED: AMLO5 PO (11:38)
[2017-12-25] MEDS ORDERED: SODBIC650 PO (11:39)
[2017-12-25] MEDS ORDERED: LISI5 PO (11:39)
[2017-12-25] MEDS ORDERED: GABA100 PO (11:39)
[2017-12-25] MEDS ORDERED: LEVSOD50 PO (11:40)
[2017-12-25] MEDS ORDERED: PRAM.125 PO (11:40)
[2017-12-25] MEDS ORDERED: ALLO100 PO (11:40)
[2017-12-25] MEDS ORDERED: Primalev 5-3001 EACH (11:41)
[2017-12-25] MEDS ORDERED: CALC.25 PO (11:41)
[2017-12-25] MEDS ORDERED: DONE10 PO (11:41)
== END 2017-12-23 16:30 | disposition home or self-care (01) ==
LOC: ATC 00:29
PROVIDERS: Internal Medicine Nephrology
DX: I12.9 Hypertensive chronic kidney disease with stage 1 through stage 4 chronic kidney disease, or unspecified chronic kidney disease (principal); E11.22 Type 2 diabetes mellitus with diabetic chronic kidney disease; N18.3 Chronic kidney disease, stage 3 (moderate); D63.1 Anemia in chronic kidney disease; E87.70 Fluid overload, unspecified; E78.5 Hyperlipidemia, unspecified; E03.9 Hypothyroidism, unspecified; E11.40 Type 2 diabetes mellitus with diabetic neuropathy, unspecified; Z87.891 Personal history of nicotine dependence
CPT/HCPCS: 36591; 80069; 85018; J1642

== ENCOUNTER → 2018-01-11 | Outpatient (CLI) | payer MEDICARE, OTHER ==
[~2018-01-11] MED LIST changes: +Meribin5 MG; +OMEPRAZOLE MAGN20 MG PO; +Primalev 5-3001 EACH
[2018-01-11 18:09] LABS: Appearance, Urine Clear (Clear); Bilirubin, Urine Neg (Neg); Blood, Urine 1+ (Neg); Color, Urine Yellow (P-Yellow); Glucose Qualitative, Urine Neg (Neg); Ketones, Urine Neg (Neg); Leukocyte Esterase, Urine Neg (Neg); Nitrite, Urine Neg (Neg); Protein, Urine 3+ (Neg); Specific Gravity, Urine 1.015 (1.003-1.022); Urobilinogen, Urine NORM (Normal)
[2018-01-11 18:28] LABS: Squamous Epithelial Cells Few /hpf (Few); White Blood Cells, Urine 0-2 /hpf (0-5)
[2018-01-11 18:29] LABS: Bacteria Rare /hpf
== END | disposition home or self-care (01) ==
LOC: LAB 14:10 → LAB SHORT 14:10
PROVIDERS: Internal Medicine Hematology & Oncology
DX: R10.9 Unspecified abdominal pain (principal)
CPT/HCPCS: 81001

== ENCOUNTER 2018-01-20 00:33 | Day surgery (SDC) | payer MEDICARE, OTHER | END 2018-01-20 16:16 | disposition home or self-care (01) | LOC: ATC 00:33 | DX: I12.9 Hypertensive chronic kidney disease with stage 1 through stage 4 chronic kidney disease, or unspecified chronic kidney disease (principal); E11.22 Type 2 diabetes mellitus with diabetic chronic kidney disease; N18.3 Chronic kidney disease, stage 3 (moderate); D63.1 Anemia in chronic kidney disease; E87.70 Fluid overload, unspecified; E03.9 Hypothyroidism, unspecified | CPT/HCPCS: 96523; J1642 ==

== ENCOUNTER 2018-02-03 08:27 | Day surgery (SDC) | payer MEDICARE, OTHER ==
[2018-02-03 15:58] LABS: Albumin, Blood 3.7 g/dL (3.4-5.0); Anion Gap 8 mmol/L (6-16); Blood Urea Nitrogen 42 mg/dL (8-24); CO2, Blood 19 mmol/L (21-32); Calcium, Blood 8.5 mg/dL (8.5-10.1); Chloride, Blood 117 mmol/L (98-108); Creatinine, Blood 1.68 mg/dL (0.40-1.00); Glomerular Filtration Rate 31 (60-); Glucose, Blood 88 mg/dL (70-99); Phosphorus, Blood 3.1 mg/dL (2.5-4.9); Potassium, Blood 4.8 mmol/L (3.5-5.5); Sodium, Blood 144 mmol/L (136-145)
== END 2018-02-03 14:35 | disposition home or self-care (01) ==
LOC: ATC 08:27
PROVIDERS: Internal Medicine Nephrology
DX: I12.9 Hypertensive chronic kidney disease with stage 1 through stage 4 chronic kidney disease, or unspecified chronic kidney disease (principal); E11.22 Type 2 diabetes mellitus with diabetic chronic kidney disease; N18.3 Chronic kidney disease, stage 3 (moderate); E87.70 Fluid overload, unspecified; I63.132 Cerebral infarction due to embolism of left carotid artery; R60.0 Localized edema; Z95.2 Presence of prosthetic heart valve; E78.5 Hyperlipidemia, unspecified
CPT/HCPCS: 36591; 80069; 85018; J1642

== ENCOUNTER 2018-03-01 04:13 | Emergency (ER) | payer MEDICARE, OTHER ==
[~2018-03-01] VITALS: Ht 147.3 cm; Wt 49.9 kg
== END 2018-03-01 05:54 | disposition home or self-care (01) ==
LOC: ER 04:13
DX: S00.03XA Contusion of scalp, initial encounter (principal); I10 Essential (primary) hypertension; Z88.8 Allergy status to other drugs, medicaments and biological substances; Z88.0 Allergy status to penicillin; Z88.1 Allergy status to other antibiotic agents; Z79.899 Other long term (current) drug therapy; Z79.891 Long term (current) use of opiate analgesic; W18.30XA Fall on same level, unspecified, initial encounter
CPT/HCPCS: 70450; 72125; 99284-25

== ENCOUNTER 2018-05-19 00:15 | Day surgery (SDC) | payer MEDICARE, OTHER ==
[2018-05-19 16:48] LABS: Albumin, Blood 3.6 g/dL (3.4-5.0); Anion Gap 7 mmol/L (6-16); Blood Urea Nitrogen 17 mg/dL (8-24); Bun/Creatinine Ratio 14.8 (12.0-20.0); CO2, Blood 19 mmol/L (21-32); Calcium, Blood 7.4 mg/dL (8.5-10.1); Chloride, Blood 116 mmol/L (98-108); Creatinine, Blood 1.15 mg/dL (0.40-1.00); Glomerular Filtration Rate 48 (60-); Glucose, Blood 71 mg/dL (70-99); Phosphorus, Blood 2.5 mg/dL (2.5-4.9); Sodium, Blood 142 mmol/L (136-145)
== END 2018-05-19 16:15 | disposition home or self-care (01) ==
LOC: ATC 00:15
PROVIDERS: Internal Medicine Nephrology
DX: N18.3 Chronic kidney disease, stage 3 (moderate) (principal); D63.1 Anemia in chronic kidney disease
CPT/HCPCS: 36591; 80069; 85018; 86038; J1642

== ENCOUNTER 2018-08-18 00:13 | Day surgery (SDC) | payer MEDICARE, OTHER ==
[2018-08-18 17:22] LABS: Alanine Aminotransfer (ALT/SGP 26 U/L (12-78); Albumin, Blood 3.2 g/dL (3.4-5.0); Albumin/Globulin Ratio 1.3 (0.8-1.8); Alk Phos 106 U/L (50-136); Anion Gap 8 mmol/L (6-16); Aspartate Aminotrans (AST/SGOT 25 U/L (12-37); Bilirubin, Direct 0.1 mg/dL (0.0-0.3); Bilirubin, Indirect 0.2 mg/dL (0.1-0.7); Bilirubin, Total 0.3 mg/dL (0.1-1.0); Blood Urea Nitrogen 26 mg/dL (8-24); Bun/Creatinine Ratio 20.5 (12.0-20.0); CO2, Blood 19 mmol/L (21-32); Calcium, Blood 8.5 mg/dL (8.5-10.1); Chloride, Blood 117 mmol/L (98-108); Creatinine, Blood 1.27 mg/dL (0.40-1.00); Globulin, Blood 2.4 g/dL (2.2-4.0); Glomerular Filtration Rate 43 (60-); Glucose, Blood 125 mg/dL (70-99); Phosphorus, Blood 2.9 mg/dL (2.5-4.9); Sodium, Blood 144 mmol/L (136-145); Total Protein, Blood 5.6 g/dL (6.4-8.2)
== END 2018-08-18 16:20 | disposition home or self-care (01) ==
LOC: ATC 00:13
PROVIDERS: Internal Medicine Nephrology
DX: I12.9 Hypertensive chronic kidney disease with stage 1 through stage 4 chronic kidney disease, or unspecified chronic kidney disease (principal); E11.22 Type 2 diabetes mellitus with diabetic chronic kidney disease; R76.8 Other specified abnormal immunological findings in serum; N18.3 Chronic kidney disease, stage 3 (moderate); D63.1 Anemia in chronic kidney disease; E78.5 Hyperlipidemia, unspecified; E03.9 Hypothyroidism, unspecified
CPT/HCPCS: 36591; 80053; 82248; 84100; J1642

== ENCOUNTER → 2018-09-05 | Outpatient (CLI) | payer MEDICARE, OTHER ==
[~2018-09-05] MED LIST changes: +(None)20 M1 PO; +Amox Tr-K Clv1 EAC1 PO; +Aspir 8181 MG PO; +Augmentin 875-1 EACH PO; +CHOL10002 PO; +CIPR500 PO; +Ferrous Sulfat325 MG PO; +Oxycodone-Apap1 EAC3 PO; +PRAMIPEXOLE D0.25 MG PO; +VITAMIN B-1250 MG PO; +Vitamin D2000 UNIT PO
== END ==
LOC: LAB EV 18:27 → LAB SHORT 18:27
DX: R53.83 Other fatigue (principal)
CPT/HCPCS: 87086

== ENCOUNTER 2018-09-08 00:17 | Day surgery (SDC) | payer MEDICARE, OTHER ==
[~2018-09-08 00:17] MED LIST changes: -(None)20 M1 PO; -Amox Tr-K Clv1 EAC1 PO; -Aspir 8181 MG PO; -Augmentin 875-1 EACH PO; -CHOL10002 PO; -CIPR500 PO; -Ferrous Sulfat325 MG PO; -Oxycodone-Apap1 EAC3 PO; -PRAMIPEXOLE D0.25 MG PO; -VITAMIN B-1250 MG PO; -Vitamin D2000 UNIT PO
[2018-09-08] MEDS ORDERED: CIPR500 PO (16:42)
[2018-09-08 18:12] LABS: U Amphetamine Screen Not Detected; U Barbituate Screen Not Detected; U Benzodiazapine Screen Not Detected; U Buprenorphine Screen Not Detected; U Cannabinoids Screen Not Detected; U Cocaine Screen Not Detected; U Methadone Screen Not Detected; U Methamphetamine Screen Not Detected; U Opiates Screen Not Detected; U Oxycodone Screen DETECTED; U Phencyclidine Screen Not Detected; U Propoxyphene Screen Not Detected
[2018-09-08 22:33] LABS: BASOPHILS ABSOLUTE AUTO 0.03 K/mm3 (0.00-0.23); BASOPHILS PERCENT AUTO 1 % (0-2); EOSINOPHILS ABSOLUTE AUTO 0.08 K/mm3 (0.00-0.68); EOSINOPHILS PERCENT AUTO 3 % (0-6); Hematocrit 35.4 % (33.0-51.0); Hemoglobin 10.8 g/dL (11.5-16.0); IMMATURE GRAN ABSOLUTE AUTO 0.01 K/mm3 (0.00-0.10); IMMATURE GRAN PERCENT AUTO 0 % (0-1); LYMPHOCYTES ABSOLUTE AUTO 0.81 K/mm3 (0.84-5.20); LYMPHOCYTES PERCENT AUTO 25 % (21-46); MONOCYTES PERCENT AUTO 9 % (4-13); Mean Corpuscular HGB 32.9 pg (26.0-34.0); Mean Corpuscular HGB Conc 30.5 g/dL (31.5-36.5); Mean Corpuscular Volume 108 fL (80-100); NEUTROPHILS ABSOLUTE AUTO 1.98 K/mm3 (1.96-9.15); NEUTROPHILS PERCENT AUTO 62 % (41-73); Platelet Count 67 K/mm3 (150-400); RDW Coefficient Variation 14.6 % (11.7-14.2); RDW Standard Deviation 57.4 fL (35.1-46.3); Red Blood Cell Count 3.28 M/mm3 (3.80-5.20); White Blood Cell Count 3.21 K/mm3 (4.00-11.30)
[2018-09-08 22:35] LABS: Mean Platelet Volume 13.5 fL (9.1-12.4)
[2018-09-08 22:41] LABS: Albumin, Blood 3.2 g/dL (3.4-5.0); Anion Gap 6 mmol/L (6-16); Blood Urea Nitrogen 22 mg/dL (8-24); CO2, Blood 23 mmol/L (21-32); Calcium, Blood 7.6 mg/dL (8.5-10.1); Chloride, Blood 116 mmol/L (98-108); Creatinine, Blood 1.47 mg/dL (0.40-1.00); Glomerular Filtration Rate 36 (60-); Glucose, Blood 90 mg/dL (70-99); Phosphorus, Blood 5.1 mg/dL (2.5-4.9); Potassium, Blood 4.5 mmol/L (3.5-5.5); Sodium, Blood 145 mmol/L (136-145)
== END 2018-09-08 16:41 | disposition home or self-care (01) ==
LOC: ATC 00:17
PROVIDERS: Internal Medicine Hematology & Oncology; Internal Medicine Nephrology
DX: E11.22 Type 2 diabetes mellitus with diabetic chronic kidney disease (principal); I12.9 Hypertensive chronic kidney disease with stage 1 through stage 4 chronic kidney disease, or unspecified chronic kidney disease; N18.3 Chronic kidney disease, stage 3 (moderate); D63.1 Anemia in chronic kidney disease; R53.83 Other fatigue; F11.220 Opioid dependence with intoxication, uncomplicated; E78.5 Hyperlipidemia, unspecified; G62.9 Polyneuropathy, unspecified
CPT/HCPCS: 36591; 80069; 83880; 85025; G0480; J1642

== ENCOUNTER 2018-09-13 18:04 | Emergency (ER) | payer MEDICARE, OTHER ==
[~2018-09-13] VITALS: Ht 149.9 cm; Wt 49.9 kg
[~2018-09-13 18:04] MED LIST changes: +CIPR500 PO
[2018-09-13 18:43] LABS: Source, Urine Clean Catch
[2018-09-13 18:50] LABS: Bilirubin, Urine Neg (Neg); Blood, Urine 1+ (Neg); Glucose Qualitative, Urine Neg (Neg); Ketones, Urine Neg (Neg); Leukocyte Esterase, Urine Neg (Neg); Nitrite, Urine Neg (Neg); Protein, Urine 3+ (Neg); Urobilinogen, Urine NORM (Normal)
[2018-09-13 18:56] LABS: BASOPHILS ABSOLUTE AUTO 0.03 K/mm3 (0.00-0.23); BASOPHILS PERCENT AUTO 1 % (0-2); EOSINOPHILS ABSOLUTE AUTO 0.08 K/mm3 (0.00-0.68); EOSINOPHILS PERCENT AUTO 3 % (0-6); Hematocrit 37.6 % (33.0-51.0); Hemoglobin 11.8 g/dL (11.5-16.0); IMMATURE GRAN ABSOLUTE AUTO 0.01 K/mm3 (0.00-0.10); IMMATURE GRAN PERCENT AUTO 0 % (0-1); LYMPHOCYTES ABSOLUTE AUTO 0.88 K/mm3 (0.84-5.20); LYMPHOCYTES PERCENT AUTO 32 % (21-46); MONOCYTES ABSOLUTE AUTO 0.24 K/mm3 (0.16-1.47); MONOCYTES PERCENT AUTO 9 % (4-13); Mean Corpuscular HGB 32.3 pg (26.0-34.0); Mean Corpuscular HGB Conc 31.4 g/dL (31.5-36.5); NEUTROPHILS ABSOLUTE AUTO 1.55 K/mm3 (1.96-9.15); NEUTROPHILS PERCENT AUTO 56 % (41-73); RDW Standard Deviation 53.7 fL (35.1-46.3); Red Blood Cell Count 3.65 M/mm3 (3.80-5.20); White Blood Cell Count 2.79 K/mm3 (4.00-11.30)
[2018-09-13 18:57] LABS: Appearance, Urine Clear (Clear); Color, Urine Yellow (P-Yellow)
[2018-09-13 18:58] LABS: Bacteria Few /hpf; Squamous Epithelial Cells Few /hpf (Few); White Blood Cells, Urine 0-2 /hpf (0-5)
[2018-09-13 18:59] LABS: Mean Corpuscular Volume 103 fL (80-100)
[2018-09-13 19:00] LABS: Platelet Count 48 K/mm3 (150-400)
[2018-09-13 19:18] LABS: Albumin, Blood 3.3 g/dL (3.4-5.0); Albumin/Globulin Ratio 1.4 (0.8-1.8); Bilirubin, Total 0.5 mg/dL (0.1-1.0); Bun/Creatinine Ratio 17.2 (12.0-20.0); Calcium, Blood 8.5 mg/dL (8.5-10.1); Creatinine, Blood 1.28 mg/dL (0.40-1.00); Globulin, Blood 2.4 g/dL (2.2-4.0); Potassium, Blood 4.8 mmol/L (3.5-5.5); Total Protein, Blood 5.7 g/dL (6.4-8.2)
[2018-09-13] MEDS ORDERED: Aspir 8181 MG PO (19:32)
[2018-09-13] MEDS ORDERED: Ferrous Sulfat325 MG PO (19:34)
[2018-09-13] MEDS ORDERED: BUME2 PO (19:35)
[2018-09-13] MEDS ORDERED: PREG100 PO (19:36)
[2018-09-13] MEDS ORDERED: BRINTELLIX10 MG PO (19:38)
[2018-09-13] MEDS ORDERED: PRAMIPEXOLE D0.25 MG PO (19:39)
[2018-09-13] MEDS ORDERED: VITAMIN B-1250 MG PO (19:41)
[2018-09-13] MEDS ORDERED: Vitamin D2000 UNIT PO (19:42)
[2018-09-13] MEDS ORDERED: CHOL10002 PO (19:42)
[2018-09-13] MEDS ORDERED: Oxycodone-Apap1 EAC3 PO (19:43)
[2018-09-13] MEDS ORDERED: HYDMOR2 PO (19:43)
[2018-09-13 20:52] LABS: Influenza A Negative (NEGATIVE); Influenza B Negative (NEGATIVE)
[2018-09-13] MEDS ORDERED: (None)20 M1 PO (21:52)
[2018-09-13] MEDS ORDERED: Augmentin 875-1 EACH PO (21:52)
== END 2018-09-13 22:23 | disposition home or self-care (01) ==
LOC: ER 18:04
PROVIDERS: Physician Assistant
DX: K62.89 Other specified diseases of anus and rectum (principal); M54.5 Low back pain; Z88.0 Allergy status to penicillin; Z88.8 Allergy status to other drugs, medicaments and biological substances; Z88.5 Allergy status to narcotic agent; Z88.1 Allergy status to other antibiotic agents; Z79.899 Other long term (current) drug therapy; Z79.82 Long term (current) use of aspirin; I12.9 Hypertensive chronic kidney disease with stage 1 through stage 4 chronic kidney disease, or unspecified chronic kidney disease; N18.9 Chronic kidney disease, unspecified; Z87.891 Personal history of nicotine dependence
CPT/HCPCS: 36415; 74176; 80053; 81001; 83690; 85025; 87804; 96374; 99284-25; J1642; J2405

== ENCOUNTER → 2018-09-15 | Outpatient (CLI) | payer MEDICARE, OTHER ==
[~2018-09-15] MED LIST changes: +(None)20 M1 PO; +Amox Tr-K Clv1 EAC1 PO; +Aspir 8181 MG PO; +Augmentin 875-1 EACH PO; +CHOL10002 PO; +Ferrous Sulfat325 MG PO; +Oxycodone-Apap1 EAC3 PO; +PRAMIPEXOLE D0.25 MG PO; +VITAMIN B-1250 MG PO; +Vitamin D2000 UNIT PO
[2018-09-16 14:01] LABS: Adenovirus F 40/41 Not Detected (NOT DETECT); Astrovirus Not Detected (NOT DETECT); Campylobacter Sp Not Detected (NOT DETECT); Cryptosporidium Not Detected (NOT DETECT); Cyclospora Cayetanensis Not Detected (NOT DETECT); E. Coli O157 Not Detected (NOT DETECT); Entamoeba Histolytica Not Detected (NOT DETECT); Enteroaggregative E. coli-EAEC Not Detected (NOT DETECT); Enteropathogenic E. coli-EPEC Not Detected (NOT DETECT); Enterotoxigenic E. coli-ETEC Not Detected (NOT DETECT); Giardia Lamblia Not Detected (NOT DETECT); Norovirus GI/GII Not Detected (NOT DETECT); Plesiomonas Shigelloides Not Detected (NOT DETECT); Rotavirus A Not Detected (NOT DETECT); Salmonella Sp Not Detected (NOT DETECT); Sapovirus Not Detected (NOT DETECT); Shiga Toxin-prod E. coli-STEC Not Detected (NOT DETECT); Shigella/Enteroin E. coli-EIEC Not Detected (NOT DETECT); Vibrio Cholerae Not Detected (NOT DETECT); Vibrio Sp Not Detected (NOT DETECT); Yersinia Enterocolitica Not Detected (NOT DETECT)
== END | disposition home or self-care (01) ==
LOC: LAB 18:10 → LAB SHORT 18:10
PROVIDERS: Internal Medicine Gastroenterology
DX: R19.7 Diarrhea, unspecified (principal)
CPT/HCPCS: 87507

== ENCOUNTER 2018-10-18 00:07 | Day surgery (SDC) | payer MEDICARE, OTHER ==
[~2018-10-18 00:07] MED LIST changes: -Amox Tr-K Clv1 EAC1 PO
[2018-10-18 15:31] LABS: BASOPHILS ABSOLUTE AUTO 0.03 K/mm3 (0.00-0.23); BASOPHILS PERCENT AUTO 1 % (0-2); EOSINOPHILS ABSOLUTE AUTO 0.06 K/mm3 (0.00-0.68); EOSINOPHILS PERCENT AUTO 2 % (0-6); Hematocrit 33.6 % (33.0-51.0); Hemoglobin 10.6 g/dL (11.5-16.0); IMMATURE GRAN ABSOLUTE AUTO 0.01 K/mm3 (0.00-0.10); IMMATURE GRAN PERCENT AUTO 0 % (0-1); LYMPHOCYTES ABSOLUTE AUTO 0.98 K/mm3 (0.84-5.20); LYMPHOCYTES PERCENT AUTO 29 % (21-46); MONOCYTES ABSOLUTE AUTO 0.29 K/mm3 (0.16-1.47); MONOCYTES PERCENT AUTO 9 % (4-13); Mean Corpuscular HGB 31.8 pg (26.0-34.0); Mean Corpuscular HGB Conc 31.5 g/dL (31.5-36.5); Mean Corpuscular Volume 101 fL (80-100); NEUTROPHILS ABSOLUTE AUTO 1.97 K/mm3 (1.96-9.15); NEUTROPHILS PERCENT AUTO 59 % (41-73); Platelet Count 76 K/mm3 (150-400); RDW Coefficient Variation 14.7 % (11.7-14.2); RDW Standard Deviation 55.1 fL (35.1-46.3); Red Blood Cell Count 3.33 M/mm3 (3.80-5.20); White Blood Cell Count 3.34 K/mm3 (4.00-11.30)
[2018-10-18 15:35] LABS: Mean Platelet Volume 12.9 fL (9.1-12.4)
[2018-10-18] MEDS ORDERED: Amox Tr-K Clv1 EAC1 PO (15:43)
[2018-10-18 15:46] LABS: International Normalized Ratio 1.02; Prothrombin Time Results 10.8 Sec (9.7-11.5)
[2018-10-18 16:06] LABS: Alanine Aminotransfer (ALT/SGP 16 U/L (12-78); Albumin, Blood 3.1 g/dL (3.4-5.0); Albumin/Globulin Ratio 1.1 (0.8-1.8); Alk Phos 128 U/L (50-136); Anion Gap 7 mmol/L (6-16); Aspartate Aminotrans (AST/SGOT 17 U/L (12-37); Bilirubin, Total 0.6 mg/dL (0.1-1.0); Blood Urea Nitrogen 23 mg/dL (8-24); Bun/Creatinine Ratio 17.7 (12.0-20.0); CO2, Blood 20 mmol/L (21-32); Calcium, Blood 5.9 mg/dL (8.5-10.1); Chloride, Blood 118 mmol/L (98-108); Globulin, Blood 2.8 g/dL (2.2-4.0); Glomerular Filtration Rate 42 (60-); Glucose, Blood 84 mg/dL (70-99); Phosphorus, Blood 2.2 mg/dL (2.5-4.9); Potassium, Blood 5.2 mmol/L (3.5-5.5); Sodium, Blood 145 mmol/L (136-145); Total Protein, Blood 5.9 g/dL (6.4-8.2)
== END 2018-10-18 15:13 | disposition home or self-care (01) ==
LOC: ATC 00:07
PROVIDERS: Internal Medicine Gastroenterology; Internal Medicine Hematology & Oncology
DX: Z45.2 Encounter for adjustment and management of vascular access device (principal); N18.3 Chronic kidney disease, stage 3 (moderate); D63.1 Anemia in chronic kidney disease; K74.69 Other cirrhosis of liver; Z79.891 Long term (current) use of opiate analgesic; Z87.891 Personal history of nicotine dependence; I10 Essential (primary) hypertension; E11.42 Type 2 diabetes mellitus with diabetic polyneuropathy
CPT/HCPCS: 36591; 80053; 80069; 82105; 85025; 85610; J1642

== ENCOUNTER 2018-11-08 00:14 | Day surgery (SDC) | payer MEDICARE, OTHER ==
[~2018-11-08 00:14] MED LIST changes: +Amox Tr-K Clv1 EAC1 PO
[2018-11-08 17:33] LABS: Albumin, Blood 3.5 g/dL (3.4-5.0); Anion Gap 6 mmol/L (6-16); Blood Urea Nitrogen 20 mg/dL (8-24); Bun/Creatinine Ratio 13.3 (12.0-20.0); CO2, Blood 21 mmol/L (21-32); Chloride, Blood 116 mmol/L (98-108); Free Thyroxine 1.06 ng/dL (0.70-1.60); Glomerular Filtration Rate 36 (60-); Glucose, Blood 87 mg/dL (70-99); Magnesium, Blood 1.4 mg/dL (1.6-2.4); Phosphorus, Blood 2.2 mg/dL (2.5-4.9); Potassium, Blood 5.2 mmol/L (3.5-5.5); Sodium, Blood 143 mmol/L (136-145)
[2018-11-12 03:14] LABS: ENDOMYSIAL ANTIBODY IGA Negative (Negative); T-TRANSGLUTAMINASE (TTG) IGA <2 U/mL (0-3)
== END 2018-11-08 16:25 | disposition home or self-care (01) ==
LOC: ATC 00:14
PROVIDERS: Internal Medicine Gastroenterology; Internal Medicine Nephrology
DX: N18.3 Chronic kidney disease, stage 3 (moderate) (principal); D63.1 Anemia in chronic kidney disease; N25.81 Secondary hyperparathyroidism of renal origin; E55.9 Vitamin D deficiency, unspecified; E78.00 Pure hypercholesterolemia, unspecified; R19.7 Diarrhea, unspecified; R76.9 Abnormal immunological finding in serum, unspecified; R94.5 Abnormal results of liver function studies; R94.6 Abnormal results of thyroid function studies; G60.9 Hereditary and idiopathic neuropathy, unspecified; R53.83 Other fatigue; K74.69 Other cirrhosis of liver; Z79.891 Long term (current) use of opiate analgesic
CPT/HCPCS: 36591; 80069; 82306; 82784; 83735; 83970; 84439; J1642

== ENCOUNTER 2018-11-17 00:23 | Day surgery (SDC) | payer MEDICARE, OTHER ==
[2018-11-17 16:54] LABS: Magnesium, Blood 1.5 mg/dL (1.6-2.4)
[2018-11-17 17:00] LABS: Albumin, Blood 3.5 g/dL (3.4-5.0); Anion Gap 5 mmol/L (6-16); Blood Urea Nitrogen 21 mg/dL (8-24); Bun/Creatinine Ratio 15.9 (12.0-20.0); CO2, Blood 22 mmol/L (21-32); Calcium, Blood 7.7 mg/dL (8.5-10.1); Chloride, Blood 118 mmol/L (98-108); Creatinine, Blood 1.32 mg/dL (0.40-1.00); Glomerular Filtration Rate 41 (60-); Glucose, Blood 109 mg/dL (70-99); Phosphorus, Blood 2.9 mg/dL (2.5-4.9); Potassium, Blood 4.1 mmol/L (3.5-5.5); Sodium, Blood 145 mmol/L (136-145)
== END 2018-11-17 16:18 | disposition home or self-care (01) ==
LOC: ATC 00:23
PROVIDERS: Internal Medicine Nephrology
DX: K74.60 Unspecified cirrhosis of liver (principal); N18.3 Chronic kidney disease, stage 3 (moderate); D63.1 Anemia in chronic kidney disease; R19.7 Diarrhea, unspecified; E55.9 Vitamin D deficiency, unspecified; N25.81 Secondary hyperparathyroidism of renal origin; E78.00 Pure hypercholesterolemia, unspecified; Z79.891 Long term (current) use of opiate analgesic
CPT/HCPCS: 36591; 80069; 83735; J1642

== ENCOUNTER → 2019-01-31 | Outpatient (CLI) | payer MEDICARE, OTHER ==
[2019-01-31 18:47] LABS: Bilirubin, Urine Neg (Neg); Blood, Urine 1+ (Neg); Glucose Qualitative, Urine Neg (Neg); Ketones, Urine Neg (Neg); Leukocyte Esterase, Urine 2+ (Neg); Nitrite, Urine Neg (Neg); Protein, Urine 3+ (Neg); Specific Gravity, Urine 1.015 (1.003-1.022); Urobilinogen, Urine NORM (Normal)
[2019-01-31 18:54] LABS: Appearance, Urine Clear (Clear); Color, Urine Yellow (P-Yellow)
[2019-01-31 18:57] LABS: Bacteria Mod /hpf; Red Blood Cells, Urine 0-2 /hpf (0-2); Squamous Epithelial Cells Mod /hpf (Few)
== END | disposition home or self-care (01) ==
LOC: LAB SHORT 18:03 → LAB 18:03
PROVIDERS: Internal Medicine Hematology & Oncology
DX: R53.81 Other malaise (principal); R53.83 Other fatigue
CPT/HCPCS: 81001; 87086

== ENCOUNTER 2019-02-09 00:18 | Day surgery (SDC) | payer MEDICARE, OTHER ==
[2019-02-09] MEDS ORDERED: HEPARIN 50500 UNIT/5 IV ×2 (10:39→10:41)
[2019-02-09 11:08] LABS: Albumin, Blood 3.5 g/dL (3.4-5.0); Anion Gap 7 mmol/L (6-16); Blood Urea Nitrogen 33 mg/dL (8-24); Bun/Creatinine Ratio 18.6 (12.0-20.0); CO2, Blood 22 mmol/L (21-32); Calcium, Blood 8.9 mg/dL (8.5-10.1); Chloride, Blood 115 mmol/L (98-108); Creatinine, Blood 1.77 mg/dL (0.40-1.00); Glomerular Filtration Rate 29 (60-); Glucose, Blood 120 mg/dL (70-99); Phosphorus, Blood 3.6 mg/dL (2.5-4.9); Potassium, Blood 5.6 mmol/L (3.5-5.5); Sodium, Blood 144 mmol/L (136-145)
== END 2019-02-09 10:30 | disposition home or self-care (01) ==
LOC: ATC 00:18
PROVIDERS: Internal Medicine Nephrology
DX: R19.7 Diarrhea, unspecified (principal); K74.69 Other cirrhosis of liver; N18.3 Chronic kidney disease, stage 3 (moderate); D63.1 Anemia in chronic kidney disease; N25.81 Secondary hyperparathyroidism of renal origin; E55.9 Vitamin D deficiency, unspecified; E78.00 Pure hypercholesterolemia, unspecified; R76.9 Abnormal immunological finding in serum, unspecified; R94.5 Abnormal results of liver function studies; R94.6 Abnormal results of thyroid function studies; Z87.891 Personal history of nicotine dependence; Z88.0 Allergy status to penicillin; Z88.1 Allergy status to other antibiotic agents; Z88.5 Allergy status to narcotic agent; Z88.8 Allergy status to other drugs, medicaments and biological substances
CPT/HCPCS: 36591; 80069; 82306; 83970; 85018; J1642

== ENCOUNTER 2019-03-04 14:49 | Day surgery (SDC) | payer MEDICARE, OTHER ==
[~2019-03-04 14:49] MED LIST changes: +HEPARIN 50500 UNIT/5 IV
== END 2019-03-04 15:30 | disposition home or self-care (01) ==
LOC: ATC 14:49
DX: E87.5 Hyperkalemia (principal); Z79.899 Other long term (current) drug therapy; Z79.82 Long term (current) use of aspirin; Z88.8 Allergy status to other drugs, medicaments and biological substances; Z88.1 Allergy status to other antibiotic agents; Z88.5 Allergy status to narcotic agent; Z88.0 Allergy status to penicillin
CPT/HCPCS: 36591; 84132; J1642

== ENCOUNTER 2019-03-23 09:15 | Day surgery (SDC) | payer MEDICARE, OTHER ==
[2019-03-22 16:38] LABS: BASOPHILS ABSOLUTE AUTO 0.02 K/mm3 (0.00-0.23); BASOPHILS PERCENT AUTO 1 % (0-2); EOSINOPHILS ABSOLUTE AUTO 0.04 K/mm3 (0.00-0.68); EOSINOPHILS PERCENT AUTO 2 % (0-6); Hematocrit 26.3 % (33.0-51.0); Hemoglobin 8.1 g/dL (11.5-16.0); IMMATURE GRAN ABSOLUTE AUTO 0.02 K/mm3 (0.00-0.10); IMMATURE GRAN PERCENT AUTO 1 % (0-1); LYMPHOCYTES ABSOLUTE AUTO 0.72 K/mm3 (0.84-5.20); LYMPHOCYTES PERCENT AUTO 33 % (21-46); MONOCYTES ABSOLUTE AUTO 0.16 K/mm3 (0.16-1.47); MONOCYTES PERCENT AUTO 7 % (4-13); Mean Corpuscular HGB 31.4 pg (26.0-34.0); Mean Corpuscular HGB Conc 30.8 g/dL (31.5-36.5); Mean Corpuscular Volume 102 fL (80-100); NEUTROPHILS ABSOLUTE AUTO 1.21 K/mm3 (1.96-9.15); NEUTROPHILS PERCENT AUTO 56 % (41-73); RDW Coefficient Variation 18.6 % (11.7-14.2); RDW Standard Deviation 69.9 fL (35.1-46.3); Red Blood Cell Count 2.58 M/mm3 (3.80-5.20); White Blood Cell Count 2.17 K/mm3 (4.00-11.30)
[2019-03-22 16:52] LABS: Platelet Count 47 K/mm3 (150-400)
[2019-03-22 17:08] LABS: C-REACTIVE PROTEIN, EXT RANGE 0.616 mg/dL (0.000-0.300)
[2019-03-22 17:12] LABS: Alanine Aminotransfer (ALT/SGP 20 U/L (12-78); Albumin, Blood 3.3 g/dL (3.4-5.0); Albumin/Globulin Ratio 1.6 (0.8-1.8); Alk Phos 118 U/L (50-136); Anion Gap 5 mmol/L (6-16); Aspartate Aminotrans (AST/SGOT 19 U/L (12-37); Bilirubin, Total 0.3 mg/dL (0.1-1.0); Blood Urea Nitrogen 36 mg/dL (8-24); Bun/Creatinine Ratio 20.1 (12.0-20.0); CO2, Blood 22 mmol/L (21-32); Calcium, Blood 8.4 mg/dL (8.5-10.1); Chloride, Blood 116 mmol/L (98-108); Creatinine, Blood 1.79 mg/dL (0.40-1.00); Globulin, Blood 2.1 g/dL (2.2-4.0); Glomerular Filtration Rate 29 (60-); Glucose, Blood 138 mg/dL (70-99); Phosphorus, Blood 4.2 mg/dL (2.5-4.9); Potassium, Blood 4.2 mmol/L (3.5-5.5); Sodium, Blood 143 mmol/L (136-145); Total Protein, Blood 5.4 g/dL (6.4-8.2)
--- NOTE | 2019-03-23 16:41 | NUR ---
PT RECEIVED A DOSE OF IV LASIX 40 MG MIDWAY THROUGH TRANSFUSION ORDERED BY DR KILLIAN AND PROVIDED BY THE PHARMACY. IMTIAZ LUNDY, RN ADMINISTERED THE MED, TELLING THE PT WHAT SHE WAS GETTING. LATER, THIS RN DISCUSED WITH THE PT THAT SHE HAD RECIEVED LASIX AND THAT THAT WAS WHY SHE WAS HAVING TO GO TO THE BATHROOM. AT THAT TIME THE PT AND THE DAUGHTER SAID THAT THE PATIENT WAS ALLERGIC TO LASIX. THIS RN CHECKED HER CHART AND COULD SEE THAT IN FACT IT IS STATED ON THE FRONT OF THE CHART UNDER ALLERGIES: "LASIX" ALONG WITH SEVERAL OTHER DRUGS. IT WAS ALSO NOTED BY THIS RN THAT LASIX IS LISTED IN [place] AND ON THE EMAR. THE REACTION IS LISTED "WEAK AND ANXIOUS". AT THE TIME OF DISCHARGE PT WAS NOT EXIBITING EITHER OF THESE REACTIONS, APROXIMATELY 1 HOUR LATER. PT AND HER DAUGHTER WERE INSTRUCTED TO F/U WITH HER MD IF A REACTION OCCURS OR SHE CAN TAKE SOMETHING FOR HER NERVES OR SHE CAN GO TO THE ER. PT WAS ABLE TO GET UP AND WALK TO THE BATHROOM. PT WAS WEAK WHEN SHE ARRIVED IN THE CLINIC AND HER BP ACTUALLY INPROVED. HAVE PLACED A LARGE BRIGHT NOTE IN HER CHART STATING THAT PT HAS HAD A REACTION TO LASIX.
[2019-03-24 00:06] LABS: COMPLEMENT C3, SERUM 86 mg/dL (82-167); COMPLEMENT C4, SERUM 19 mg/dL (14-44)
== END 2019-03-23 16:30 | disposition home or self-care (01) ==
LOC: ATC 09:15
PROVIDERS: Internal Medicine Nephrology
PROC: 30233N1 Transfusion of Nonautologous Red Blood Cells into Peripheral Vein, Percutaneous Approach (ICD-10-PCS; principal; 2019-03-23)
DX: I12.9 Hypertensive chronic kidney disease with stage 1 through stage 4 chronic kidney disease, or unspecified chronic kidney disease (principal); N18.4 Chronic kidney disease, stage 4 (severe); D63.1 Anemia in chronic kidney disease; N25.81 Secondary hyperparathyroidism of renal origin; L98.9 Disorder of the skin and subcutaneous tissue, unspecified; D75.1 Secondary polycythemia; D51.8 Other vitamin B12 deficiency anemias; D52.8 Other folate deficiency anemias; D50.9 Iron deficiency anemia, unspecified; M81.0 Age-related osteoporosis without current pathological fracture; E55.9 Vitamin D deficiency, unspecified; Z88.2 Allergy status to sulfonamides; Z88.0 Allergy status to penicillin; Z88.8 Allergy status to other drugs, medicaments and biological substances; Z95.828 Presence of other vascular implants and grafts; Z79.899 Other long term (current) drug therapy; Z79.891 Long term (current) use of opiate analgesic
CPT/HCPCS: 36430; 80053; 82607; 82728; 82746; 83540; 83550; 84100; 85025; 85651; 86140; 86160; 86850; 86900; 86901; 86923; 96374; J1642; J1940; J7050; P9016

== ENCOUNTER 2019-04-13 00:21 | Day surgery (SDC) | payer MEDICARE, OTHER ==
[2019-04-13 09:18] LABS: BASOPHILS ABSOLUTE AUTO 0.01 K/mm3 (0.00-0.23); BASOPHILS PERCENT AUTO 0 % (0-2); EOSINOPHILS ABSOLUTE AUTO 0.07 K/mm3 (0.00-0.68); EOSINOPHILS PERCENT AUTO 2 % (0-6); Hematocrit 37.4 % (33.0-51.0); Hemoglobin 11.7 g/dL (11.5-16.0); IMMATURE GRAN PERCENT AUTO 0 % (0-1); LYMPHOCYTES ABSOLUTE AUTO 0.86 K/mm3 (0.84-5.20); LYMPHOCYTES PERCENT AUTO 29 % (21-46); MONOCYTES ABSOLUTE AUTO 0.29 K/mm3 (0.16-1.47); MONOCYTES PERCENT AUTO 10 % (4-13); Mean Corpuscular HGB 32.5 pg (26.0-34.0); Mean Corpuscular HGB Conc 31.3 g/dL (31.5-36.5); Mean Corpuscular Volume 104 fL (80-100); NEUTROPHILS ABSOLUTE AUTO 1.72 K/mm3 (1.96-9.15); NEUTROPHILS PERCENT AUTO 58 % (41-73); RDW Standard Deviation 65.8 fL (35.1-46.3); White Blood Cell Count 2.95 K/mm3 (4.00-11.30)
[2019-04-13 09:35] LABS: Platelet Count 48 K/mm3 (150-400)
[2019-04-13 09:38] LABS: Albumin, Blood 3.4 g/dL (3.4-5.0); Albumin/Globulin Ratio 1.5 (0.8-1.8); Bilirubin, Total 0.7 mg/dL (0.1-1.0); Bun/Creatinine Ratio 18.7 (12.0-20.0); Calcium, Blood 7.7 mg/dL (8.5-10.1); Creatinine, Blood 1.5 mg/dL (0.40-1.00); Globulin, Blood 2.2 g/dL (2.2-4.0); Potassium, Blood 5.3 mmol/L (3.5-5.5); Total Protein, Blood 5.6 g/dL (6.4-8.2)
[2019-04-13 09:41] LABS: International Normalized Ratio 1.08; Prothrombin Time Results 11.4 Sec (9.7-11.5)
== END 2019-04-13 09:04 | disposition home or self-care (01) ==
LOC: LAB 00:21 → ATC 00:21
PROVIDERS: Internal Medicine Gastroenterology
DX: K74.60 Unspecified cirrhosis of liver (principal); Z79.01 Long term (current) use of anticoagulants
CPT/HCPCS: 36591; 80053; 82105; 85025; 85610; J1642

== ENCOUNTER 2019-04-18 00:11 | Day surgery (SDC) | payer MEDICARE, OTHER | END 2019-04-18 12:05 | disposition home or self-care (01) | LOC: ATC 00:11 | DX: I12.9 Hypertensive chronic kidney disease with stage 1 through stage 4 chronic kidney disease, or unspecified chronic kidney disease (principal); N18.4 Chronic kidney disease, stage 4 (severe); D63.1 Anemia in chronic kidney disease; N25.81 Secondary hyperparathyroidism of renal origin; R80.9 Proteinuria, unspecified; D50.9 Iron deficiency anemia, unspecified; N39.0 Urinary tract infection, site not specified; M81.0 Age-related osteoporosis without current pathological fracture; E55.9 Vitamin D deficiency, unspecified | CPT/HCPCS: 36591; 84132; J1642 ==

== ENCOUNTER 2019-05-04 11:35 | Emergency (ER) | payer MEDICARE ==
[~2019-05-04] VITALS: Ht 149.9 cm; Wt 51.7 kg
== END 2019-05-04 13:50 | disposition home or self-care (01) ==
LOC: ER 11:35
DX: S00.83XA Contusion of other part of head, initial encounter (principal); I10 Essential (primary) hypertension; Z87.891 Personal history of nicotine dependence; Z88.0 Allergy status to penicillin; Z88.1 Allergy status to other antibiotic agents; Z88.8 Allergy status to other drugs, medicaments and biological substances; Z88.5 Allergy status to narcotic agent; Z79.82 Long term (current) use of aspirin; W01.10XA Fall on same level from slipping, tripping and stumbling with subsequent striking against unspecified object, initial encounter
CPT/HCPCS: 70450; 72125; 90471; 90714; 99283-25

== ENCOUNTER 2019-05-08 23:03 | Emergency (ER) | payer MEDICARE, OTHER ==
[~2019-05-08] VITALS: Ht 152.4 cm; Wt 49.9 kg
[2019-05-09] MEDS ORDERED: TRAZ50 PO (00:10)
== END 2019-05-09 00:36 | disposition home or self-care (01) ==
LOC: ER 23:03
DX: F41.9 Anxiety disorder, unspecified (principal); G47.00 Insomnia, unspecified; S00.83XD Contusion of other part of head, subsequent encounter; S00.12XD Contusion of left eyelid and periocular area, subsequent encounter; S00.11XD Contusion of right eyelid and periocular area, subsequent encounter; W19.XXXD Unspecified fall, subsequent encounter; Z88.0 Allergy status to penicillin; Z88.8 Allergy status to other drugs, medicaments and biological substances; Z88.1 Allergy status to other antibiotic agents; Z88.5 Allergy status to narcotic agent; Z91.048 Other nonmedicinal substance allergy status; Z79.899 Other long term (current) drug therapy; Z79.82 Long term (current) use of aspirin; I10 Essential (primary) hypertension
CPT/HCPCS: 99283

== ENCOUNTER 2019-06-08 00:34 | Day surgery (SDC) | payer MEDICARE, OTHER ==
[2019-06-08 17:09] LABS: Albumin, Blood 3.4 g/dL (3.4-5.0); Anion Gap 4 mmol/L (6-16); Blood Urea Nitrogen 45 mg/dL (8-24); Bun/Creatinine Ratio 24.3 (12.0-20.0); CO2, Blood 23 mmol/L (21-32); Calcium, Blood 7.4 mg/dL (8.5-10.1); Chloride, Blood 116 mmol/L (98-108); Creatinine, Blood 1.85 mg/dL (0.40-1.00); Glomerular Filtration Rate 28 (60-); Glucose, Blood 159 mg/dL (70-99); Phosphorus, Blood 3.3 mg/dL (2.5-4.9); Potassium, Blood 5.1 mmol/L (3.5-5.5); Sodium, Blood 143 mmol/L (136-145)
== END 2019-06-08 16:50 | disposition home or self-care (01) ==
LOC: ATC 00:34
PROVIDERS: Internal Medicine Nephrology
DX: I12.9 Hypertensive chronic kidney disease with stage 1 through stage 4 chronic kidney disease, or unspecified chronic kidney disease (principal); N18.4 Chronic kidney disease, stage 4 (severe); D63.1 Anemia in chronic kidney disease; N25.81 Secondary hyperparathyroidism of renal origin; D50.9 Iron deficiency anemia, unspecified; Z79.899 Other long term (current) drug therapy; Z88.8 Allergy status to other drugs, medicaments and biological substances; Z88.5 Allergy status to narcotic agent; Z88.0 Allergy status to penicillin; Z88.1 Allergy status to other antibiotic agents
CPT/HCPCS: 36591; 80069; J1642

== ENCOUNTER 2019-06-20 12:32 | Emergency (ER) | payer MEDICARE, OTHER ==
[~2019-06-20] VITALS: Ht 147.3 cm; Wt 46.7 kg
[2019-06-20] MEDS ORDERED: PRINIVIL10 MG PO (12:51)
[2019-06-20] MEDS ORDERED: PROZAC20 MG PO (12:51)
== END 2019-06-20 14:20 | disposition home or self-care (01) ==
LOC: ER 12:32
DX: M79.661 Pain in right lower leg (principal); Z88.8 Allergy status to other drugs, medicaments and biological substances; Z88.0 Allergy status to penicillin; Z88.1 Allergy status to other antibiotic agents; Z79.899 Other long term (current) drug therapy; Z79.82 Long term (current) use of aspirin; I10 Essential (primary) hypertension; Z87.891 Personal history of nicotine dependence
CPT/HCPCS: 93005; 93010; 93306; 93971; 99284-25

== ENCOUNTER → 2019-07-08 | Outpatient (CLI) | payer MEDICARE, OTHER ==
[~2019-07-08] MED LIST changes: +PRINIVIL10 MG PO; +PROZAC20 MG PO
[2019-07-10 15:07] LABS: C DIFFICILE BY DNA AMP Positive (Negative)
== END | disposition home or self-care (01) ==
LOC: LAB SHORT 15:30 → OLS 15:30 → LAB SHORT 07-10 11:59
PROVIDERS: Internal Medicine Hematology & Oncology
DX: R19.7 Diarrhea, unspecified (principal)
CPT/HCPCS: 87324; 87493

== ENCOUNTER 2019-07-13 00:13 | Day surgery (SDC) | payer MEDICARE, OTHER ==
--- NOTE | 2019-07-13 18:24 | NUR ---
PT DID NOT SHOW FOR HER APPOINTMENT TODAY.
== END 2019-07-13 23:19 | disposition home or self-care (01) ==
LOC: ATC 00:13
DX: E87.5 Hyperkalemia (principal); I12.9 Hypertensive chronic kidney disease with stage 1 through stage 4 chronic kidney disease, or unspecified chronic kidney disease; N18.4 Chronic kidney disease, stage 4 (severe); D63.1 Anemia in chronic kidney disease; N25.81 Secondary hyperparathyroidism of renal origin; M81.0 Age-related osteoporosis without current pathological fracture; D50.9 Iron deficiency anemia, unspecified; E55.9 Vitamin D deficiency, unspecified; Z88.0 Allergy status to penicillin; Z88.1 Allergy status to other antibiotic agents; Z88.2 Allergy status to sulfonamides; Z88.5 Allergy status to narcotic agent; Z88.8 Allergy status to other drugs, medicaments and biological substances; Z79.899 Other long term (current) drug therapy; Z79.82 Long term (current) use of aspirin

== ENCOUNTER → 2019-08-05 | Outpatient (CLI) | payer MEDICARE, OTHER ==
[~2019-08-05] MED LIST changes: +CLON.1
[2019-08-07 15:28] LABS: Campylobacter Sp Not Detected (NOT DETECT)
[2019-08-07 15:29] LABS: Adenovirus F 40/41 Not Detected (NOT DETECT); Astrovirus Not Detected (NOT DETECT); Cryptosporidium Not Detected (NOT DETECT); Cyclospora Cayetanensis Not Detected (NOT DETECT); E. Coli O157 Not Detected (NOT DETECT); Entamoeba Histolytica Not Detected (NOT DETECT); Enteroaggregative E. coli-EAEC Not Detected (NOT DETECT); Enteropathogenic E. coli-EPEC Not Detected (NOT DETECT); Enterotoxigenic E. coli-ETEC Not Detected (NOT DETECT); Giardia Lamblia Not Detected (NOT DETECT); Norovirus GI/GII Not Detected (NOT DETECT); Plesiomonas Shigelloides Not Detected (NOT DETECT); Rotavirus A Not Detected (NOT DETECT); Salmonella Sp Not Detected (NOT DETECT); Sapovirus Not Detected (NOT DETECT); Shiga Toxin-prod E. coli-STEC Not Detected (NOT DETECT); Shigella/Enteroin E. coli-EIEC Not Detected (NOT DETECT); Vibrio Cholerae Not Detected (NOT DETECT); Vibrio Sp Not Detected (NOT DETECT); Yersinia Enterocolitica Not Detected (NOT DETECT)
== END | disposition home or self-care (01) ==
LOC: LAB 12:10 → LAB SHORT 12:10
PROVIDERS: Internal Medicine Gastroenterology
DX: R19.7 Diarrhea, unspecified (principal); R53.83 Other fatigue; R18.8 Other ascites; K74.69 Other cirrhosis of liver
CPT/HCPCS: 0097U

== ENCOUNTER 2019-08-08 00:13 | Day surgery (SDC) | payer MEDICARE, OTHER ==
[~2019-08-08 00:13] MED LIST changes: -CLON.1
[2019-08-08 16:16] LABS: BASOPHILS ABSOLUTE AUTO 0.02 K/mm3 (0.00-0.23); BASOPHILS PERCENT AUTO 1 % (0-2); EOSINOPHILS ABSOLUTE AUTO 0.03 K/mm3 (0.00-0.68); EOSINOPHILS PERCENT AUTO 2 % (0-6); Hemoglobin 9.2 g/dL (11.5-16.0); IMMATURE GRAN ABSOLUTE AUTO 0.01 K/mm3 (0.00-0.10); IMMATURE GRAN PERCENT AUTO 1 % (0-1); LYMPHOCYTES ABSOLUTE AUTO 0.53 K/mm3 (0.84-5.20); LYMPHOCYTES PERCENT AUTO 26 % (21-46); MONOCYTES PERCENT AUTO 10 % (4-13); Mean Corpuscular HGB 31.2 pg (26.0-34.0); Mean Corpuscular HGB Conc 31.7 g/dL (31.5-36.5); Mean Corpuscular Volume 98 fL (80-100); NEUTROPHILS ABSOLUTE AUTO 1.24 K/mm3 (1.96-9.15); NEUTROPHILS PERCENT AUTO 61 % (41-73); RDW Coefficient Variation 21.2 % (11.7-14.2); RDW Standard Deviation 73.5 fL (35.1-46.3); Red Blood Cell Count 2.95 M/mm3 (3.80-5.20); White Blood Cell Count 2.03 K/mm3 (4.00-11.30)
[2019-08-08 16:24] LABS: Amylase, Blood 45 U/L (25-115)
[2019-08-08 16:25] LABS: Alanine Aminotransfer (ALT/SGP 17 U/L (12-78); Albumin, Blood 3.2 g/dL (3.4-5.0); Albumin/Globulin Ratio 1.5 (0.8-1.8); Alk Phos 93 U/L (50-136); Anion Gap 5 mmol/L (6-16); Aspartate Aminotrans (AST/SGOT 19 U/L (12-37); Bilirubin, Direct 0.2 mg/dL (0.0-0.3); Bilirubin, Indirect 0.3 mg/dL (0.1-0.7); Bilirubin, Total 0.5 mg/dL (0.1-1.0); Blood Urea Nitrogen 27 mg/dL (8-24); Bun/Creatinine Ratio 16.5 (12.0-20.0); CO2, Blood 22 mmol/L (21-32); Calcium, Blood 8.7 mg/dL (8.5-10.1); Chloride, Blood 118 mmol/L (98-108); Creatinine, Blood 1.64 mg/dL (0.40-1.00); Globulin, Blood 2.2 g/dL (2.2-4.0); Glomerular Filtration Rate 32 (60-); Glucose, Blood 81 mg/dL (70-99); Phosphorus, Blood 3.1 mg/dL (2.5-4.9); Potassium, Blood 4.5 mmol/L (3.5-5.5); Sodium, Blood 145 mmol/L (136-145); Total Protein, Blood 5.4 g/dL (6.4-8.2)
--- NOTE | 2019-08-08 16:29 | NUR ---
BLOOD PRESSURE: PT'S BP IS 230/92. DR AYALA AWARE OF PTS HIGH BP, PT IS GOING DIRECTLY OVER TO [facility] OFFICE, PT REFUSES TO GO TO ER. PT HAS LONG HISTORY OF HYPER TENSION .
[2019-08-08 16:38] LABS: Platelet Count 49 K/mm3 (150-400)
[2019-08-29] MEDS ORDERED: CLON.1 (14:03)
== END 2019-08-08 23:16 | disposition home or self-care (01) ==
LOC: ATC 00:13
PROVIDERS: Internal Medicine Gastroenterology
DX: I12.0 Hypertensive chronic kidney disease with stage 5 chronic kidney disease or end stage renal disease (principal); N18.6 End stage renal disease; D63.1 Anemia in chronic kidney disease; N25.81 Secondary hyperparathyroidism of renal origin; D50.9 Iron deficiency anemia, unspecified; M81.0 Age-related osteoporosis without current pathological fracture; E55.9 Vitamin D deficiency, unspecified; Z79.82 Long term (current) use of aspirin; Z79.899 Other long term (current) drug therapy; Z88.0 Allergy status to penicillin; Z88.1 Allergy status to other antibiotic agents; Z88.5 Allergy status to narcotic agent; Z88.8 Allergy status to other drugs, medicaments and biological substances
CPT/HCPCS: 36591; 80048; 80053; 80069; 82150; 82248; 83690; 83970; 84100; 85025; J1642

== ENCOUNTER → 2019-08-08 | Outpatient (CLI) | payer MEDICARE, OTHER ==
[2019-08-08 12:23] LABS: Bilirubin, Urine Neg (Neg); Blood, Urine 1+ (Neg); Glucose Qualitative, Urine Neg (Neg); Ketones, Urine Neg (Neg); Leukocyte Esterase, Urine 2+ (Neg); Nitrite, Urine Neg (Neg); Protein, Urine 4+ (Neg); Specific Gravity, Urine 1.015 (1.003-1.022); Urobilinogen, Urine NORM (Normal)
[2019-08-08 13:00] LABS: Appearance, Urine Hazy (Clear); Color, Urine Yellow (P-Yellow)
[2019-08-08 13:01] LABS: Bacteria Few /hpf; Red Blood Cells, Urine 0-2 /hpf (0-2); Squamous Epithelial Cells Mod /hpf (Few)
== END | disposition home or self-care (01) ==
LOC: OLS 11:51 → LAB SHORT 11:51
PROVIDERS: Internal Medicine Gastroenterology
DX: K74.69 Other cirrhosis of liver (principal); R18.8 Other ascites; R19.7 Diarrhea, unspecified; R53.83 Other fatigue
CPT/HCPCS: 81001; 87086

== ENCOUNTER 2019-08-10 14:45 | Day surgery (SDC) | payer MEDICARE, OTHER ==
[2019-08-29] MEDS ORDERED: CLON.1 (14:03)
== END 2019-08-10 22:54 | disposition home or self-care (01) ==
LOC: ATC 14:45
DX: I12.9 Hypertensive chronic kidney disease with stage 1 through stage 4 chronic kidney disease, or unspecified chronic kidney disease (principal); N18.3 Chronic kidney disease, stage 3 (moderate); D63.1 Anemia in chronic kidney disease; D50.9 Iron deficiency anemia, unspecified; N25.81 Secondary hyperparathyroidism of renal origin; E55.9 Vitamin D deficiency, unspecified; F17.210 Nicotine dependence, cigarettes, uncomplicated; Z88.0 Allergy status to penicillin; Z88.1 Allergy status to other antibiotic agents; Z88.2 Allergy status to sulfonamides; Z88.5 Allergy status to narcotic agent; Z88.8 Allergy status to other drugs, medicaments and biological substances; Z79.82 Long term (current) use of aspirin; Z79.899 Other long term (current) drug therapy

== ENCOUNTER → 2019-08-11 | Outpatient (CLI) | payer MEDICARE, OTHER ==
[~2019-08-11] MED LIST changes: +CLON.1
[2019-08-12 21:35] LABS: Campylobacter Sp Not Detected (NOT DETECT)
[2019-08-12 21:36] LABS: Adenovirus F 40/41 Not Detected (NOT DETECT); Astrovirus Not Detected (NOT DETECT); Cryptosporidium Not Detected (NOT DETECT); Cyclospora Cayetanensis Not Detected (NOT DETECT); E. Coli O157 Not Detected (NOT DETECT); Entamoeba Histolytica Not Detected (NOT DETECT); Enteroaggregative E. coli-EAEC Not Detected (NOT DETECT); Enteropathogenic E. coli-EPEC Not Detected (NOT DETECT); Enterotoxigenic E. coli-ETEC Not Detected (NOT DETECT); Giardia Lamblia Not Detected (NOT DETECT); Norovirus GI/GII Not Detected (NOT DETECT); Plesiomonas Shigelloides Not Detected (NOT DETECT); Rotavirus A Not Detected (NOT DETECT); Salmonella Sp Not Detected (NOT DETECT); Sapovirus Not Detected (NOT DETECT); Shiga Toxin-prod E. coli-STEC Not Detected (NOT DETECT); Shigella/Enteroin E. coli-EIEC Not Detected (NOT DETECT); Vibrio Cholerae Not Detected (NOT DETECT); Vibrio Sp Not Detected (NOT DETECT); Yersinia Enterocolitica Not Detected (NOT DETECT)
== END | disposition home or self-care (01) ==
LOC: LAB SHORT 18:00 → OLS 18:00 → LAB SHORT 08-12 12:51
PROVIDERS: Internal Medicine Gastroenterology
DX: R19.7 Diarrhea, unspecified (principal)
CPT/HCPCS: 0097U; 83993

== ENCOUNTER 2019-08-14 00:43 | Day surgery (SDC) | payer MEDICARE, OTHER ==
[~2019-08-14 00:43] MED LIST changes: -CLON.1
[2019-08-14 12:04] LABS: Albumin, Blood 3.2 g/dL (3.4-5.0); Anion Gap 8 mmol/L (6-16); Blood Urea Nitrogen 38 mg/dL (8-24); CO2, Blood 21 mmol/L (21-32); Calcium, Blood 7.8 mg/dL (8.5-10.1); Chloride, Blood 115 mmol/L (98-108); Creatinine, Blood 1.73 mg/dL (0.40-1.00); Glomerular Filtration Rate 30 (60-); Glucose, Blood 108 mg/dL (70-99); Potassium, Blood 4.4 mmol/L (3.5-5.5); Sodium, Blood 144 mmol/L (136-145)
[2019-08-14 12:06] LABS: International Normalized Ratio 1.05; Prothrombin Time Results 11.1 Sec (9.7-11.5)
[2019-08-29] MEDS ORDERED: CLON.1 (14:03)
== END 2019-08-14 10:50 | disposition home or self-care (01) ==
LOC: ATC 00:43
PROVIDERS: Internal Medicine Gastroenterology
DX: I12.9 Hypertensive chronic kidney disease with stage 1 through stage 4 chronic kidney disease, or unspecified chronic kidney disease (principal); N18.3 Chronic kidney disease, stage 3 (moderate); D63.1 Anemia in chronic kidney disease; N25.81 Secondary hyperparathyroidism of renal origin; M79.7 Fibromyalgia; E03.9 Hypothyroidism, unspecified; M19.90 Unspecified osteoarthritis, unspecified site; D50.9 Iron deficiency anemia, unspecified; K74.60 Unspecified cirrhosis of liver; D69.6 Thrombocytopenia, unspecified; M81.0 Age-related osteoporosis without current pathological fracture; Z79.82 Long term (current) use of aspirin; Z79.899 Other long term (current) drug therapy; Z88.0 Allergy status to penicillin; Z88.1 Allergy status to other antibiotic agents; Z88.5 Allergy status to narcotic agent; Z88.8 Allergy status to other drugs, medicaments and biological substances
CPT/HCPCS: 36591; 80069; 85610; 85730; J1642

== ENCOUNTER 2019-08-29 14:47 | Day surgery (SDC) | payer MEDICARE, OTHER ==
[~2019-08-29 14:47] MED LIST changes: +CLON.1
[2019-08-29 16:50] LABS: Automated BF RBC Count 0.009 M/mm3 (0-0); Automated BF WBC Count 0.198 K/mm3 (0-999); Body Fluid WBC Count 198 /mm3 (0-999); RBC Count, Body Fluid 9000 /mm3 (0-0)
[2019-08-29 16:58] LABS: Albumin, Body Fluid 0.7 g/dL
[2019-08-29 17:25] LABS: Total Cell Count, Body Fluid 100
[2019-08-29 17:27] LABS: Appearance, Body Fluid Hazy (Clear); Color, Body Fluid Red (None-Yellow)
== END 2019-08-29 22:36 | disposition home or self-care (01) ==
LOC: ATC 14:47 → US 15:00 → ATC 22:36
PROVIDERS: Internal Medicine Gastroenterology
DX: K74.60 Unspecified cirrhosis of liver (principal); R18.8 Other ascites; K76.6 Portal hypertension; R16.1 Splenomegaly, not elsewhere classified; I12.0 Hypertensive chronic kidney disease with stage 5 chronic kidney disease or end stage renal disease; N18.6 End stage renal disease; D50.9 Iron deficiency anemia, unspecified; M81.0 Age-related osteoporosis without current pathological fracture; E55.9 Vitamin D deficiency, unspecified; D63.1 Anemia in chronic kidney disease; N25.81 Secondary hyperparathyroidism of renal origin; Z88.0 Allergy status to penicillin; Z88.1 Allergy status to other antibiotic agents; Z88.5 Allergy status to narcotic agent; Z88.8 Allergy status to other drugs, medicaments and biological substances; Z79.82 Long term (current) use of aspirin; Z79.899 Other long term (current) drug therapy; Z87.891 Personal history of nicotine dependence; Z51.5 Encounter for palliative care
CPT/HCPCS: 49083; 82042; 87070; 88108; 89051; 96365; J1642; P9041

== ENCOUNTER → 2019-10-05 | Outpatient (CLI) | payer MEDICARE, OTHER | END | disposition home or self-care (01) | LOC: LAB SHORT 16:09 → OLS 16:09 | PROVIDERS: Internal Medicine Nephrology | DX: R19.7 Diarrhea, unspecified (principal) | CPT/HCPCS: 87324; 87493 ==

== ENCOUNTER 2019-10-23 16:59 | Emergency (ER) | payer MEDICARE, OTHER ==
[~2019-10-23] VITALS: Ht 149.9 cm; Wt 49.9 kg
[~2019-10-23 16:59] MED LIST changes: +B-1100 M1 PO; +Bumetanide2 MG PO; -VITAMIN B-1250 MG PO
[2019-10-23 18:12] LABS: BASOPHILS ABSOLUTE AUTO 0.01 K/mm3 (0.00-0.23); BASOPHILS PERCENT AUTO 0 % (0-2); EOSINOPHILS ABSOLUTE AUTO 0.01 K/mm3 (0.00-0.68); EOSINOPHILS PERCENT AUTO 0 % (0-6); Hematocrit 29.1 % (33.0-51.0); Hemoglobin 9.2 g/dL (11.5-16.0); IMMATURE GRAN ABSOLUTE AUTO 0.01 K/mm3 (0.00-0.10); IMMATURE GRAN PERCENT AUTO 0 % (0-1); LYMPHOCYTES ABSOLUTE AUTO 0.23 K/mm3 (0.84-5.20); LYMPHOCYTES PERCENT AUTO 8 % (21-46); MONOCYTES ABSOLUTE AUTO 0.22 K/mm3 (0.16-1.47); MONOCYTES PERCENT AUTO 8 % (4-13); Mean Corpuscular HGB 30.5 pg (26.0-34.0); Mean Corpuscular HGB Conc 31.6 g/dL (31.5-36.5); Mean Corpuscular Volume 96 fL (80-100); NEUTROPHILS ABSOLUTE AUTO 2.31 K/mm3 (1.96-9.15); NEUTROPHILS PERCENT AUTO 83 % (41-73); RDW Coefficient Variation 17.7 % (11.7-14.2); RDW Standard Deviation 62.3 fL (35.1-46.3); Red Blood Cell Count 3.02 M/mm3 (3.80-5.20); White Blood Cell Count 2.79 K/mm3 (4.00-11.30)
[2019-10-23 18:17] LABS: Platelet Count 30 K/mm3 (150-400)
[2019-10-23 18:22] LABS: International Normalized Ratio 1.08; Prothrombin Time Results 11.5 Sec (9.7-11.5)
[2019-10-23 18:26] LABS: Albumin, Blood 2.8 g/dL (3.4-5.0); Albumin/Globulin Ratio 1.3 (0.8-1.8); Bilirubin, Total 0.4 mg/dL (0.1-1.0); Bun/Creatinine Ratio 20.9 (12.0-20.0); Calcium, Blood 7.6 mg/dL (8.5-10.1); Creatinine, Blood 1.87 mg/dL (0.40-1.00); Globulin, Blood 2.1 g/dL (2.2-4.0); Potassium, Blood 4.5 mmol/L (3.5-5.5); Total Protein, Blood 4.9 g/dL (6.4-8.2)
[2019-10-23] MEDS ORDERED: Percocet 5-3251 EACH PO (19:30)
[2019-10-23] MEDS ORDERED: DONEPEZIL HCL10 M1 PO (19:33)
[2019-10-23] MEDS ORDERED: LISI5 PO (19:33)
== END 2019-10-23 20:36 | disposition home or self-care (01) ==
LOC: ER 16:59
PROVIDERS: Physician Assistant
DX: K74.60 Unspecified cirrhosis of liver (principal); D61.818 Other pancytopenia; R18.8 Other ascites; Z88.8 Allergy status to other drugs, medicaments and biological substances; Z88.0 Allergy status to penicillin; Z88.1 Allergy status to other antibiotic agents; Z88.5 Allergy status to narcotic agent; Z79.899 Other long term (current) drug therapy; Z79.82 Long term (current) use of aspirin; I10 Essential (primary) hypertension; Z87.891 Personal history of nicotine dependence
CPT/HCPCS: 71046; 80053; 83690; 85025; 85610; 96374; 99284-25; J1642; J2405

== ENCOUNTER 2019-10-31 00:20 | Day surgery (SDC) | payer MEDICARE, OTHER ==
[~2019-10-31 00:20] MED LIST changes: +DONEPEZIL HCL10 M1 PO
[2019-10-31 11:36] LABS: BASOPHILS ABSOLUTE AUTO 0.02 K/mm3 (0.00-0.23); BASOPHILS PERCENT AUTO 1 % (0-2); EOSINOPHILS ABSOLUTE AUTO 0.09 K/mm3 (0.00-0.68); EOSINOPHILS PERCENT AUTO 3 % (0-6); Hematocrit 33.4 % (33.0-51.0); Hemoglobin 10.7 g/dL (11.5-16.0); IMMATURE GRAN ABSOLUTE AUTO 0.03 K/mm3 (0.00-0.10); IMMATURE GRAN PERCENT AUTO 1 % (0-1); LYMPHOCYTES ABSOLUTE AUTO 0.42 K/mm3 (0.84-5.20); LYMPHOCYTES PERCENT AUTO 13 % (21-46); MONOCYTES ABSOLUTE AUTO 0.27 K/mm3 (0.16-1.47); MONOCYTES PERCENT AUTO 8 % (4-13); Mean Corpuscular HGB 31.1 pg (26.0-34.0); Mean Corpuscular Volume 97 fL (80-100); NEUTROPHILS PERCENT AUTO 75 % (41-73); NRBC ABSOLUTE 0.02 K/mm3 (0.00-0.02); NRBC Auto 0.6 /100 WBC (0.0-0.2); RDW Coefficient Variation 20.5 % (11.7-14.2); Red Blood Cell Count 3.44 M/mm3 (3.80-5.20); White Blood Cell Count 3.33 K/mm3 (4.00-11.30)
[2019-10-31 11:43] LABS: Platelet Count 44 K/mm3 (150-400)
[2019-10-31 11:48] LABS: International Normalized Ratio 1.11; Prothrombin Time Results 11.8 Sec (9.7-11.5)
[2019-10-31 11:57] LABS: Albumin, Blood 2.8 g/dL (3.4-5.0); Albumin/Globulin Ratio 1.2 (0.8-1.8); Bilirubin, Total 0.5 mg/dL (0.1-1.0); Bun/Creatinine Ratio 15.2 (12.0-20.0); Calcium, Blood 7.7 mg/dL (8.5-10.1); Creatinine, Blood 1.97 mg/dL (0.40-1.00); Free Thyroxine 1.38 ng/dL (0.70-1.60); Globulin, Blood 2.4 g/dL (2.2-4.0); Potassium, Blood 5.5 mmol/L (3.5-5.5); Total Protein, Blood 5.2 g/dL (6.4-8.2)
[2019-11-02] MEDS ORDERED: SINEMET 25-1001 EACH PO (10:51)
[2019-11-02] MEDS ORDERED: COLE625 PO (10:52)
[2019-11-02] MEDS ORDERED: ARANESP10 MCG/0.4 (10:59)
[2019-11-02] MEDS ORDERED: ONDA4ODT MM (11:00)
[2019-11-02] MEDS ORDERED: PROLIA60 MG/1 ML (11:00)
== END 2019-10-31 11:25 | disposition home or self-care (01) ==
LOC: ATC 00:20
PROVIDERS: Internal Medicine Gastroenterology
DX: K70.31 Alcoholic cirrhosis of liver with ascites (principal); I10 Essential (primary) hypertension; Z88.8 Allergy status to other drugs, medicaments and biological substances; Z88.5 Allergy status to narcotic agent; Z88.2 Allergy status to sulfonamides; Z88.1 Allergy status to other antibiotic agents; Z88.0 Allergy status to penicillin; Z87.891 Personal history of nicotine dependence; Z79.899 Other long term (current) drug therapy; Z79.82 Long term (current) use of aspirin
CPT/HCPCS: 80053; 82105; 84439; 85025; 85610; J1642

== ENCOUNTER 2019-11-03 12:36 | Emergency (ER) | payer MEDICARE, OTHER ==
[~2019-11-03] VITALS: Ht 149.9 cm; Wt 49.9 kg
[~2019-11-03 12:36] MED LIST changes: +ARANESP10 MCG/0.4; +COLE625 PO; +PROLIA60 MG/1 ML; +SINEMET 25-1001 EACH PO
[2019-11-03 13:58] LABS: Hematocrit 31.9 % (33.0-51.0); Hemoglobin 9.9 g/dL (11.5-16.0); Mean Corpuscular HGB 31.3 pg (26.0-34.0); RDW Coefficient Variation 21.6 % (11.7-14.2); Red Blood Cell Count 3.16 M/mm3 (3.80-5.20); White Blood Cell Count 2.27 K/mm3 (4.00-11.30)
[2019-11-03 13:59] LABS: Mean Corpuscular Volume 101 fL (80-100)
[2019-11-03 14:01] LABS: Platelet Count 32 K/mm3 (150-400)
[2019-11-03 14:18] LABS: Albumin, Blood 2.4 g/dL (3.4-5.0); Albumin/Globulin Ratio 1.1 (0.8-1.8); Bilirubin, Total 0.4 mg/dL (0.1-1.0); Bun/Creatinine Ratio 16.7 (12.0-20.0); Calcium, Blood 7.8 mg/dL (8.5-10.1); Creatinine, Blood 1.98 mg/dL (0.40-1.00); Globulin, Blood 2.1 g/dL (2.2-4.0); Potassium, Blood 4.9 mmol/L (3.5-5.5); Total Protein, Blood 4.5 g/dL (6.4-8.2)
[2019-11-03 14:29] LABS: International Normalized Ratio 1.13
== END 2019-11-03 16:55 | disposition home or self-care (01) ==
LOC: ER 12:36
PROVIDERS: Emergency Medicine
DX: R18.8 Other ascites (principal); D69.6 Thrombocytopenia, unspecified; G62.9 Polyneuropathy, unspecified; I10 Essential (primary) hypertension; M81.0 Age-related osteoporosis without current pathological fracture; K74.60 Unspecified cirrhosis of liver; Z87.891 Personal history of nicotine dependence; Z88.0 Allergy status to penicillin; Z88.5 Allergy status to narcotic agent; Z88.1 Allergy status to other antibiotic agents; Z88.3 Allergy status to other anti-infective agents; Z88.8 Allergy status to other drugs, medicaments and biological substances; Z79.82 Long term (current) use of aspirin; Z79.899 Other long term (current) drug therapy
CPT/HCPCS: 49083; 80053; 85025; 85610; 85730; 86900; 86901; 99284-25; J1642; P9035

== ENCOUNTER 2019-11-08 11:55 | Day surgery (SDC) | payer MEDICARE, OTHER ==
[~2019-11-08] VITALS: Ht 147.3 cm; Wt 50.9 kg
--- NOTE | 2019-11-08 12:52 | NUR ---
11/08/19 1252 Lala Patel 2 FAILED ATTEMPT IVS, NURSE TO ACCESS PORT
--- NOTE | 2019-11-08 15:49 | NUR ---
11/08/19 1549 Tana Herrera S MEDIPORT FLUSHED WITH 5ML NACL & THEN FLUSHED WITH 5ML HEPARIN (100UNITS/ML) CLAPPING OFF AT LAST 1/2ML. NO BLEEDING WHEN NEEDLE OUT FROM PORT, COVERED WITH BANDANID. MEDIPORT WAS IN LEFT CHEST.
== END 2019-11-08 15:23 | disposition home or self-care (01) ==
LOC: ORSCSDS 11:55
PROVIDERS: Internal Medicine Gastroenterology
PROC: 0D757ZZ Dilation of Esophagus, Via Natural or Artificial Opening (ICD-10-PCS; principal; 2019-11-08 13:00)
PROC: 0DBE8ZX Excision of Large Intestine, Via Natural or Artificial Opening Endoscopic, Diagnostic (ICD-10-PCS; principal; 2019-11-08 13:00)
PROC: 0DJ08ZZ Inspection of Upper Intestinal Tract, Via Natural or Artificial Opening Endoscopic (ICD-10-PCS; principal; 2019-11-08 13:00)
DX: R19.7 Diarrhea, unspecified (principal); K74.69 Other cirrhosis of liver; R18.8 Other ascites; N18.2 Chronic kidney disease, stage 2 (mild); R68.81 Early satiety; K55.20 Angiodysplasia of colon without hemorrhage; K21.9 Gastro-esophageal reflux disease without esophagitis; K57.30 Diverticulosis of large intestine without perforation or abscess without bleeding; K64.8 Other hemorrhoids; K76.6 Portal hypertension; K31.89 Other diseases of stomach and duodenum; I10 Essential (primary) hypertension; J44.9 Chronic obstructive pulmonary disease, unspecified; Z87.891 Personal history of nicotine dependence; N18.9 Chronic kidney disease, unspecified; G20 Parkinson's disease; Z79.899 Other long term (current) drug therapy
CPT/HCPCS: 88305; J1642; J2704; J7030

== ENCOUNTER → 2019-11-13 | Outpatient (CLI) | payer MEDICARE, OTHER ==
[2019-11-13 17:31] LABS: Hematocrit 36.9 % (33.0-51.0); Hemoglobin 11.4 g/dL (11.5-16.0); Mean Corpuscular HGB 30.7 pg (26.0-34.0); Mean Corpuscular HGB Conc 30.9 g/dL (31.5-36.5); Mean Corpuscular Volume 100 fL (80-100); RDW Coefficient Variation 21.2 % (11.7-14.2); RDW Standard Deviation 77.9 fL (35.1-46.3); Red Blood Cell Count 3.71 M/mm3 (3.80-5.20); White Blood Cell Count 3.81 K/mm3 (4.00-11.30)
[2019-11-13 18:02] LABS: Platelet Count 38 K/mm3 (150-400)
== END | disposition home or self-care (01) ==
LOC: LAB 14:30 → LAB SHORT 14:30
PROVIDERS: Internal Medicine Nephrology
DX: N18.3 Chronic kidney disease, stage 3 (moderate) (principal); D63.1 Anemia in chronic kidney disease; R76.9 Abnormal immunological finding in serum, unspecified; R94.5 Abnormal results of liver function studies; R94.6 Abnormal results of thyroid function studies
CPT/HCPCS: 85027

== ENCOUNTER 2019-11-16 12:33 | Emergency (ER) | payer MEDICARE, OTHER ==
[~2019-11-16] VITALS: Ht 149.9 cm; Wt 49.9 kg
[2019-11-16 15:04] LABS: BASOPHILS ABSOLUTE AUTO 0.04 K/mm3 (0.00-0.23); BASOPHILS PERCENT AUTO 1 % (0-2); EOSINOPHILS ABSOLUTE AUTO 0.06 K/mm3 (0.00-0.68); EOSINOPHILS PERCENT AUTO 1 % (0-6); Hematocrit 43.3 % (33.0-51.0); Hemoglobin 13.3 g/dL (11.5-16.0); IMMATURE GRAN ABSOLUTE AUTO 0.02 K/mm3 (0.00-0.10); IMMATURE GRAN PERCENT AUTO 0 % (0-1); LYMPHOCYTES ABSOLUTE AUTO 0.77 K/mm3 (0.84-5.20); LYMPHOCYTES PERCENT AUTO 17 % (21-46); MONOCYTES ABSOLUTE AUTO 0.48 K/mm3 (0.16-1.47); MONOCYTES PERCENT AUTO 10 % (4-13); Mean Corpuscular HGB 30.7 pg (26.0-34.0); Mean Corpuscular HGB Conc 30.7 g/dL (31.5-36.5); Mean Corpuscular Volume 100 fL (80-100); NEUTROPHILS ABSOLUTE AUTO 3.26 K/mm3 (1.96-9.15); NEUTROPHILS PERCENT AUTO 70 % (41-73); Platelet Count 59 K/mm3 (150-400); RDW Coefficient Variation 20.6 % (11.7-14.2); RDW Standard Deviation 76.1 fL (35.1-46.3); Red Blood Cell Count 4.33 M/mm3 (3.80-5.20); White Blood Cell Count 4.63 K/mm3 (4.00-11.30)
[2019-11-16 15:15] LABS: International Normalized Ratio 1.06; Prothrombin Time Results 11.3 Sec (9.7-11.5)
[2019-11-16 15:24] LABS: Albumin, Blood 2.8 g/dL (3.4-5.0); Albumin/Globulin Ratio 1.1 (0.8-1.8); Bilirubin, Total 0.3 mg/dL (0.1-1.0); Bun/Creatinine Ratio 22.4 (12.0-20.0); Calcium, Blood 7.9 mg/dL (8.5-10.1); Creatinine, Blood 2.14 mg/dL (0.40-1.00); Globulin, Blood 2.6 g/dL (2.2-4.0); Potassium, Blood 5.2 mmol/L (3.5-5.5); Total Protein, Blood 5.4 g/dL (6.4-8.2)
== END 2019-11-16 18:38 | disposition home or self-care (01) ==
LOC: ER 12:33
PROVIDERS: Nurse Practitioner
DX: R18.8 Other ascites (principal); D69.6 Thrombocytopenia, unspecified; G62.9 Polyneuropathy, unspecified; I10 Essential (primary) hypertension; N19 Unspecified kidney failure; Z88.0 Allergy status to penicillin; Z88.5 Allergy status to narcotic agent; Z88.8 Allergy status to other drugs, medicaments and biological substances; Z88.1 Allergy status to other antibiotic agents; Z79.899 Other long term (current) drug therapy; Z79.82 Long term (current) use of aspirin; Z87.891 Personal history of nicotine dependence
CPT/HCPCS: 49083; 80053; 85025; 85610; 99284-25; J1642

== ENCOUNTER 2019-11-29 10:16 | Emergency (ER) | payer MEDICARE, OTHER ==
[~2019-11-29] VITALS: Ht 147.3 cm; Wt 45.4 kg
[2019-11-29 12:00] LABS: BASOPHILS ABSOLUTE AUTO 0.03 K/mm3 (0.00-0.23); BASOPHILS PERCENT AUTO 1 % (0-2); EOSINOPHILS ABSOLUTE AUTO 0.04 K/mm3 (0.00-0.68); EOSINOPHILS PERCENT AUTO 1 % (0-6); Hematocrit 36.4 % (33.0-51.0); IMMATURE GRAN ABSOLUTE AUTO 0.01 K/mm3 (0.00-0.10); IMMATURE GRAN PERCENT AUTO 0 % (0-1); LYMPHOCYTES ABSOLUTE AUTO 0.53 K/mm3 (0.84-5.20); LYMPHOCYTES PERCENT AUTO 13 % (21-46); MONOCYTES ABSOLUTE AUTO 0.28 K/mm3 (0.16-1.47); MONOCYTES PERCENT AUTO 7 % (4-13); Mean Corpuscular HGB 30.2 pg (26.0-34.0); Mean Corpuscular HGB Conc 30.2 g/dL (31.5-36.5); Mean Corpuscular Volume 100 fL (80-100); NEUTROPHILS ABSOLUTE AUTO 3.12 K/mm3 (1.96-9.15); NEUTROPHILS PERCENT AUTO 78 % (41-73); RDW Coefficient Variation 20.7 % (11.7-14.2); RDW Standard Deviation 76.7 fL (35.1-46.3); Red Blood Cell Count 3.64 M/mm3 (3.80-5.20); White Blood Cell Count 4.01 K/mm3 (4.00-11.30)
[2019-11-29 12:20] LABS: Platelet Count 46 K/mm3 (150-400)
[2019-11-29 12:25] LABS: International Normalized Ratio 1.08; Prothrombin Time Results 11.5 Sec (9.7-11.5)
== END 2019-11-29 16:24 | disposition home or self-care (01) ==
LOC: ER 10:16
PROVIDERS: Emergency Medicine
DX: K74.60 Unspecified cirrhosis of liver (principal); R18.8 Other ascites; I10 Essential (primary) hypertension; Z88.8 Allergy status to other drugs, medicaments and biological substances; Z88.0 Allergy status to penicillin; Z88.5 Allergy status to narcotic agent; Z91.048 Other nonmedicinal substance allergy status; Z88.1 Allergy status to other antibiotic agents; Z79.899 Other long term (current) drug therapy; Z79.82 Long term (current) use of aspirin; Z87.891 Personal history of nicotine dependence
CPT/HCPCS: 49083; 85025; 85610; 86850; 86900; 86901; 99285-25; J1642; P9035

== ENCOUNTER 2019-12-07 00:09 | Day surgery (SDC) | payer MEDICARE, OTHER | END 2019-12-07 16:00 | disposition home or self-care (01) | LOC: ATC 00:09 | DX: L03.90 Cellulitis, unspecified (principal); I12.9 Hypertensive chronic kidney disease with stage 1 through stage 4 chronic kidney disease, or unspecified chronic kidney disease; N18.4 Chronic kidney disease, stage 4 (severe); D63.1 Anemia in chronic kidney disease; N25.81 Secondary hyperparathyroidism of renal origin; E87.70 Fluid overload, unspecified; E11.21 Type 2 diabetes mellitus with diabetic nephropathy; R80.9 Proteinuria, unspecified; E87.5 Hyperkalemia; E55.9 Vitamin D deficiency, unspecified; M81.0 Age-related osteoporosis without current pathological fracture; R18.8 Other ascites; Z79.899 Other long term (current) drug therapy | CPT/HCPCS: 96365; J0696; J1642 ==

== ENCOUNTER 2019-12-08 08:24 | Day surgery (SDC) | payer MEDICARE, OTHER | END 2019-12-08 22:39 | disposition home or self-care (01) | LOC: ATC 08:24 | DX: L03.90 Cellulitis, unspecified (principal); I12.9 Hypertensive chronic kidney disease with stage 1 through stage 4 chronic kidney disease, or unspecified chronic kidney disease; E11.22 Type 2 diabetes mellitus with diabetic chronic kidney disease; N18.4 Chronic kidney disease, stage 4 (severe); D63.1 Anemia in chronic kidney disease; N25.81 Secondary hyperparathyroidism of renal origin; E55.9 Vitamin D deficiency, unspecified; M81.0 Age-related osteoporosis without current pathological fracture; Z79.82 Long term (current) use of aspirin; Z79.899 Other long term (current) drug therapy | CPT/HCPCS: J0696 ==

== ENCOUNTER 2019-12-10 17:39 | Emergency (ER) | payer MEDICARE, OTHER ==
[~2019-12-10] VITALS: Ht 157.5 cm; Wt 45.4 kg
[2019-12-10 18:29] LABS: BASOPHILS ABSOLUTE AUTO 0.04 K/mm3 (0.00-0.23); BASOPHILS PERCENT AUTO 1 % (0-2); EOSINOPHILS ABSOLUTE AUTO 0.03 K/mm3 (0.00-0.68); EOSINOPHILS PERCENT AUTO 1 % (0-6); Hematocrit 39.3 % (33.0-51.0); Hemoglobin 12.3 g/dL (11.5-16.0); IMMATURE GRAN ABSOLUTE AUTO 0.02 K/mm3 (0.00-0.10); IMMATURE GRAN PERCENT AUTO 0 % (0-1); LYMPHOCYTES ABSOLUTE AUTO 0.77 K/mm3 (0.84-5.20); LYMPHOCYTES PERCENT AUTO 14 % (21-46); MONOCYTES ABSOLUTE AUTO 0.35 K/mm3 (0.16-1.47); MONOCYTES PERCENT AUTO 6 % (4-13); Mean Corpuscular HGB 30.7 pg (26.0-34.0); Mean Corpuscular HGB Conc 31.3 g/dL (31.5-36.5); NEUTROPHILS ABSOLUTE AUTO 4.24 K/mm3 (1.96-9.15); NEUTROPHILS PERCENT AUTO 78 % (41-73); Platelet Count 74 K/mm3 (150-400); RDW Coefficient Variation 19.7 % (11.7-14.2); RDW Standard Deviation 71.4 fL (35.1-46.3); Red Blood Cell Count 4.01 M/mm3 (3.80-5.20); White Blood Cell Count 5.45 K/mm3 (4.00-11.30)
[2019-12-10 18:35] LABS: Mean Corpuscular Volume 98 fL (80-100)
[2019-12-10 18:48] LABS: Albumin, Blood 2.2 g/dL (3.4-5.0); Albumin/Globulin Ratio 0.8 (0.8-1.8); Bilirubin, Total 0.6 mg/dL (0.1-1.0); Bun/Creatinine Ratio 22.9 (12.0-20.0); Calcium, Blood 7.6 mg/dL (8.5-10.1); Creatinine, Blood 2.92 mg/dL (0.40-1.00); Globulin, Blood 2.7 g/dL (2.2-4.0); Potassium, Blood 4.4 mmol/L (3.5-5.5); Total Protein, Blood 4.9 g/dL (6.4-8.2)
== END 2019-12-10 21:16 | disposition home or self-care (01) ==
LOC: ER 17:39
PROVIDERS: Physician Assistant
DX: R11.2 Nausea with vomiting, unspecified (principal); K72.90 Hepatic failure, unspecified without coma; Z88.8 Allergy status to other drugs, medicaments and biological substances; Z88.0 Allergy status to penicillin; Z88.5 Allergy status to narcotic agent; Z88.1 Allergy status to other antibiotic agents; Z91.018 Allergy to other foods; Z79.899 Other long term (current) drug therapy; Z79.82 Long term (current) use of aspirin; Z87.891 Personal history of nicotine dependence
CPT/HCPCS: 80053; 83690; 85025; 96374; 96375; 99284-25; J1200; J1630; J1642; J2405

== ENCOUNTER 2019-12-12 06:02 | Day surgery (SDC) | payer MEDICARE, OTHER ==
[~2019-12-12] VITALS: Ht 147.3 cm; Wt 44.6 kg
== END 2019-12-12 22:58 | disposition home or self-care (01) ==
LOC: ORSCMMR 06:02 → ORD 10:00 → ORSCMMR 10:00
PROVIDERS: Surgery
PROC: 0W9F30Z Drainage of Abdominal Wall with Drainage Device, Percutaneous Approach (ICD-10-PCS; principal; 2019-12-12 07:30)
DX: R18.8 Other ascites (principal); N17.9 Acute kidney failure, unspecified; Z87.891 Personal history of nicotine dependence; Z79.899 Other long term (current) drug therapy; Z79.82 Long term (current) use of aspirin
CPT/HCPCS: C1729; C1769; J0690; J1642; J2250; J2704; J3010; J7120